=== PATIENT | female | born 1960 | race Caucasian/White ===

== ENCOUNTER 2019-05-15 21:08 | Emergency (ER) | payer OTHER, SELFPAY ==
[2019-05-15 21:27] VITALS: BP 139/97; PULSE 108; RESP 18; TEMP 37.4; O2SAT 99; BMI 29.5
--- NOTE | 2019-05-15 21:39 | W.ED.GENADLT ---
HPI - General Adult General: Chief complaint: Fever Stated complaint: fever Time Seen by Provider: 05/15/19 21:31 History of Present Illness: HPI narrative: Patient complains of flulike symptoms since yesterday. She had to go to her primary care provider today and tested negative for flu but started on Tamiflu and Phenergan with codeine for cough. Said she has a headache and just does not feel good muscles ache. History of migraines MD complaint: Flu Onset (ago): day(s) Associated symptoms: Reports cough, fevers/chills and headache(s); Deny chest pain, dyspnea, nausea, rash or vomiting Review of Systems Const: Reports: fever, chills and body aches Eyes: Denies: change in vision or blurry vision ENMT: Denies: throat pain or nasal congestion Card: Denies: chest pain or shortness of breath on exertion Resp: Denies: shortness of breath, productive cough or non-productive cough GI: Denies: abdominal pain, nausea or vomiting Musc: Denies: extremity pain Skin/Breast: Denies: rash Neuro: Reports: headache Psych: Denies: anxiety or depression Gautam/Lymph: Denies: easy bruising PFSH ED PFSH: Social History Smoking and tobacco status: never smoked Physical Exam Const: COMMON NORMALS: no apparent distress, average body habitus and oriented x3 HENMT: COMMON NORMALS: normocephalic HEAD & SCALP: normal to inspection and normocephalic FACE & SINUS: normal facial exam Eye: COMMON NORMALS: conjunctivae normal GENERAL EYE: normal appearance of both eyes CONJUNCTIVA: Yes conjunctivae normal Neck/C-Spine: COMMON NORMALS: no JVD Chest: COMMONS NORMALS: inspection of chest normal Resp: COMMON NORMALS: normal respiratory effort and clear to auscultation bilaterally AUSCULTATION: clear to auscultation bilaterally Cardio: COMMON NORMALS: no JVD, regular rate and regular rhythm RATE: regular rate RHYTHM: regular rhythm GI: COMMON NORMALS: normal to inspection, nondistended, normoactive bowel sounds Extremity: COMMON NORMALS: normal to inspection and full ROM Neuro: COMMON NORMALS: oriented x3 Course Vital Signs: Vital signs: Vital Signs Temperature 99.4 F 05/15/19 21:27 Pulse Rate 108 H 05/15/19 21:27 Respiratory Rate 18 05/15/19 21:27 Blood Pressure 139/97 05/15/19 21:27 Pulse Oximetry 99 05/15/19 21:27 Discharge Plan Discharge Prescriptions: No Action Prinivil 5 mg tablet 5 mg PO DAILY RF: 0 Coding Level of Care Code ED Competitive Intelligence Manager for Chelsie Villeda
[2019-05-15] MEDS: sodium chloride 0.9% 1,000 ML 999 ML IV (21:48)
[2019-05-15] MEDS: ondansetron 2 mg/ML SDV 2 mL 8 MG IVP (21:50)
[2019-05-15] MEDS: ketorolac 30 mg/mL INJ IVP (21:53)
[2019-05-15 22:58] VITALS: BP 107/84; PULSE 108; RESP 18; TEMP 37.4; O2SAT 96
== END 2019-05-15 22:58 | disposition home or self-care (01) ==
PROVIDERS: Emergency Provider Nurse Practitioner Family; Family Provider Nurse Practitioner Family
DX: R50.9 Fever, unspecified (principal); R05 Cough; R51 Headache
CPT/HCPCS: 96360; 96361; 96374; 96375; 99281; 99283; J1885; J2405; J7030

== ENCOUNTER → 2020-01-27 10:09 | Outpatient (BNVA) | payer OTHER, SELFPAY | PROVIDERS: Family Provider Nurse Practitioner Family; PCP Nurse Practitioner Family; Referring Provider Nurse Practitioner Family; Visit Provider Anesthesiology Pain Medicine | DX: M47.816 Spondylosis without myelopathy or radiculopathy, lumbar region (principal); M51.16 Intervertebral disc disorders with radiculopathy, lumbar region; M54.9 Dorsalgia, unspecified; M62.830 Muscle spasm of back; Z79.1 Long term (current) use of non-steroidal anti-inflammatories (NSAID) | CPT/HCPCS: 99203; 99204 ==

== ENCOUNTER 2020-01-28 09:27 | Outpatient (CLI) | payer OTHER, SELFPAY ==
--- NOTE | 2020-01-28 09:37 | XR_ITS ---
WS: [id number] Lumbar spine with flexion, extension, and neutral lateral, 01/28/2020 Clinical Data: M47.816 - Spondylosis without myelopathy or radiculopathy, lumbar region Comparison: Lumbar spine, 02/18/2018. Findings: No compression fractures is seen. There is degenerative disc narrowing at L3-L4.. There is a subluxation of L3 on L4 of 0.45 cm. Minimal osteoarthritic spurring is seen at L3 and L4.. On flexion and extension there is no limitation of motion or change in the subluxation. XR/XR lumbar spine f/e only [id number] Impression: 1. Degenerative disc narrowing at L3-L4. 2. 0.45 cm subluxation of L3 on L4. 3. No change in the subluxation or limitation of motion on flexion or extension .
[2020-01-28 10:34] LABS: Anion Gap 11.9 (5-19); Blood Urea Nitrogen 10 mg/dL (6-20); Calcium 9.1 mg/dL (8.5-10.5); Carbon Dioxide 32 mmol/L (22-29); Chloride 103 mmol/L (98-107); Glomerular Filtration Rate 64.3 mL/min (90-130); Glucose 86 mg/dL (65-115); Osmolality Calculated 294 mOsm/kg (285-295); Potassium 3.9 mmol/L (3.5-5.1); Sodium 143 mmol/L (136-145)
== END 2020-01-28 09:28 | disposition home or self-care (01) ==
LOC: RAD 09:33
PROVIDERS: PCP Nurse Practitioner Family; Visit Provider Anesthesiology Pain Medicine
DX: M47.816 Spondylosis without myelopathy or radiculopathy, lumbar region (principal); Z79.1 Long term (current) use of non-steroidal anti-inflammatories (NSAID); S33.130A Subluxation of L3/L4 lumbar vertebra, initial encounter; X58.XXXA Exposure to other specified factors, initial encounter
CPT/HCPCS: 72120; 80048

== ENCOUNTER → 2020-02-24 09:21 | Outpatient (BNVA) | payer OTHER, SELFPAY | PROVIDERS: Family Provider Nurse Practitioner Family; PCP Nurse Practitioner Family; Visit Provider Anesthesiology Pain Medicine | DX: M54.9 Dorsalgia, unspecified (principal); M47.816 Spondylosis without myelopathy or radiculopathy, lumbar region; M51.16 Intervertebral disc disorders with radiculopathy, lumbar region; M62.830 Muscle spasm of back | CPT/HCPCS: 99213 ==

== ENCOUNTER → 2020-03-02 12:46 | Outpatient (BNVA) | payer OTHER, SELFPAY | PROVIDERS: Family Provider Nurse Practitioner Family; PCP Nurse Practitioner Family; Visit Provider Anesthesiology Pain Medicine | DX: M53.3 Sacrococcygeal disorders, not elsewhere classified (principal); M54.9 Dorsalgia, unspecified; Z79.891 Long term (current) use of opiate analgesic | CPT/HCPCS: G0260; J1030; J3490 ==

== ENCOUNTER → 2020-03-23 10:24 | Outpatient (BNVA) | payer OTHER, SELFPAY | PROVIDERS: Family Provider Nurse Practitioner Family; PCP Nurse Practitioner Family; Visit Provider Anesthesiology Pain Medicine | DX: M54.9 Dorsalgia, unspecified (principal); M47.816 Spondylosis without myelopathy or radiculopathy, lumbar region; M51.16 Intervertebral disc disorders with radiculopathy, lumbar region; M62.830 Muscle spasm of back | CPT/HCPCS: 99213; 99214 ==

== ENCOUNTER 2020-07-14 09:04 | Outpatient (CLI) | payer OTHER, SELFPAY ==
--- NOTE | 2020-07-14 09:16 | XR_ITS ---
WS: [id number] Exam: XR lumbar spine 6V w f/e [id number] Date/Time of Exam: 07/14/2020 9:29 AM Reason For Exam: ACUTE BACK PAIN LESS THAN 4 WKS DURATION No fracture or dislocation. Moderate degeneration of the L3-4 disc with degenerative anterolisthesis of L3 on L4. Mild spondylosis. Osteopenia. Facet DJD at all levels. Flexion and extension views show about 9 mm forward movement of L3 on L4 during flexion. No other sign of instability or subluxation. XR/XR lumbar spine 6V w f/e [id number] IMPRESSION: 1. Degenerative anterolisthesis of L3 on L4 with about 9 mm forward movement of L3 during flexion. Degeneration of the L3-4 disc. 2. No fracture. Degenerative changes and osteopenia.
== END 2020-07-14 09:05 | disposition home or self-care (01) ==
PROVIDERS: PCP Nurse Practitioner Family; Visit Provider Nurse Practitioner Family
DX: M54.5 Low back pain (principal)
CPT/HCPCS: 72114

== ENCOUNTER 2020-09-22 11:07 | Outpatient (CLI) | payer OTHER, SELFPAY ==
--- NOTE | 2020-09-22 11:16 | XR_ITS ---
WS: [id number] Lumbar spine, 3 views, 09/22/2020 Clinical Data: pain after injury Comparison: Lumbar spine, 07/14/2020 Findings: No compression fractures are seen. There is degenerative disc narrowing at L3-L4. There is a 0.9. cm subluxation of L3 on L4 unchanged. There is anterior osteoarthritic spurring of L1, L3-L5. The transv erse processes and SI joints are normal. XR/XR lumbar spine 2-3V* [id number] Impression: 1. Degenerative disc narrowing at L3-L4. 2. Subluxation of L3 on L4 of 0.9 cm 3. Osteoarthritis of multiple lumbar vertebral bodies.
--- NOTE | 2020-09-22 11:16 | XR_ITS ---
WS: [id number] Left elbow, 3 views, 09/22/2020 Clinical Data: pain after injury Comparison: None. Findings: No fractures or dislocations are seen. The radial head is normal. The soft tissues are unremarkable. There is a small fragment adjacent to the olecranon which may be from an old injury. XR/XR elbow LT min 3V* [id number] Impression: Negative left elbow.
--- NOTE | 2020-09-22 11:16 | XR_ITS ---
WS: [id number] Left shoulder, 3 views, 09/22/2020 Clinical Data: pain after injury Comparison: None. Findings: No fractures or dislocations are seen. The AC joint is normal. The adjacent left clavicle, left scapu la and ribs are normal. The soft tissues are unremarkable. XR/XR shoulder LT min 2V* [id number] Impression: Negative left shoulder.
== END 2020-09-22 11:08 | disposition home or self-care (01) ==
LOC: RAD 11:11
PROVIDERS: PCP Nurse Practitioner Family; Visit Provider Nurse Practitioner
DX: M25.512 Pain in left shoulder (principal); M54.5 Low back pain; M25.522 Pain in left elbow; S33.130A Subluxation of L3/L4 lumbar vertebra, initial encounter; M47.816 Spondylosis without myelopathy or radiculopathy, lumbar region
CPT/HCPCS: 72100; 73030; 73080

== ENCOUNTER 2020-11-02 09:00 | Outpatient (CLI) | payer OTHER, SELFPAY ==
--- NOTE | 2020-11-02 09:24 | MR_ITS ---
WS: [id number] MRI CERVICAL SPINE NONCONTRAST TECHNIQUE: Sagittal T1, T2 and STIR imaging. Axial T2, gradient, and fiesta imaging. CLINICAL INFORMATION: neck pain w radiculopathy to right shoulder/arm COMPARISON: MRI 7 FINDINGS: Mild cervical curve. Straightening of the normal cervical lordosis. Cord signal is normal. Small disc protrusions worse at C4-C5 and C5-C6. C2-C3: Mild left bony foraminal narrowing. Spinal canal and foramen are patent. C3-C4: Mild disc osteophyte complex with endplate ridging. Mild facet arthropathy. Spinal canal is pa tent. Mild left and no significant right foraminal narrowing. Spinal canal is patent. C4-C5: Disc osteophyte protrusion with endplate ridging. Moderate facet arthropathy. Moderate central canal stenosis with slight contact and flattening of the cervical cord. Moderate bilateral bony fora vitaliy narrowing left greater than right. C5-C6: Disc osteophyte protrusion with moderate central canal stenosis. Slight contact of the cervica l cord. Moderate right and mild left foraminal narrowing. Moderate facet arthropathy. C6-C7: Mild disc osteophyte complex with endplate ridging. Mild left and no significant right foramin al narrowing. Spinal canal is patent. C7-T1: Normal. Visualized brain stem structures: Normal. Prevertebral soft tissues: Normal. MR/MR cervical spin wo con* [id number] IMPRESSION: 1. Small disc osteophyte protrusions C4-C5 and C5-C6 with moderate central can al stenosis and slight contact of the cervical cord worse at C4-5. This appears stable since 2019. 2. Moderate bilateral bony foraminal narrowing C4-C5 worse in the left and C5- C6 worse in the right. 3. Mild left C3-C4 and left C6-C7 bony foraminal narrowing. 4. Moderate facet arthropathy C4-C6.
== END 2020-11-02 09:01 | disposition home or self-care (01) ==
PROVIDERS: PCP Nurse Practitioner Family; Visit Provider Family Medicine
DX: M48.02 Spinal stenosis, cervical region (principal); S16.1XXA Strain of muscle, fascia and tendon at neck level, initial encounter; M54.2 Cervicalgia; M54.12 Radiculopathy, cervical region; M47.812 Spondylosis without myelopathy or radiculopathy, cervical region; M25.78 Osteophyte, vertebrae; X58.XXXA Exposure to other specified factors, initial encounter
CPT/HCPCS: 72141

== ENCOUNTER 2022-03-08 07:40 | Outpatient (CLI) | payer OTHER, SELFPAY ==
--- NOTE | 2022-03-08 07:47 | MM_ITS ---
WS: [id number] BILATERAL SCREENING DIGITAL TOMOSYNTHESIS MAMMOGRAM WITH CAD HISTORY: SCREENING COMPARISON: 02/17/2019, 11/15/2017 Bilateral CC and MLO views with tomosynthesis and synthetic mammography submitted. Computer aided det ection analyzed. Breast composition: There are scattered areas of fibroglandular density. No suspicious masses, microc alcifications or architectural distortion. MM/[place] [id number] IMPRESSION: BI-RADS: 1-Negative FOLLOW UP: 1 Year Follow-up
== END 2022-03-08 07:41 | disposition home or self-care (01) ==
LOC: RAD 07:42
PROVIDERS: PCP Family Medicine; Visit Provider Family Medicine
DX: Z12.31 Encounter for screening mammogram for malignant neoplasm of breast (principal)
CPT/HCPCS: 77063; 77067

== ENCOUNTER 2022-03-23 09:24 | Outpatient (CLI) | payer OTHER, SELFPAY | END 2022-03-23 09:25 | disposition home or self-care (01) | LOC: SLEEP 03-24 09:27 | PROVIDERS: PCP Family Medicine; Visit Provider Family Medicine | DX: G47.10 Hypersomnia, unspecified (principal) | CPT/HCPCS: G0399 ==

== ENCOUNTER 2022-10-19 12:45 | Outpatient (CLI) | payer OTHER, SELFPAY ==
--- NOTE | 2022-10-19 | USCV_ITS ---
Lilo Mayo Age: 62 Gender: F : 1960 Exam Date: 10/19/2022 13:15 Ordering Phys: Livia Stein Technologist: DAVE [place]am Location[place] [facility] [place]: Leg swelling and pain HISTORY: Lower extremity pain. Lower extremity swelling. PROCEDURES: Venous duplex imaging was performed in only the right lower extremity. The following venous structures were evaluated: common femoral vein, profunda vein, proximal portion of the greater saphenous vein, superficial femoral vein, and the popliteal vein. In addition, the posterior tibial and peroneal trunk were evaluated. Serial compression, augmentation maneuvers, and spectral Doppler flow evaluation were performed. FINDINGS: Normal 2-D Doppler and augmentation and compressibility throughout the lower extremity venous structures. Additional imaging through the proximal calf veins also reveals no thrombus. Limited evaluation of the greater saphenous vein is patent with no thrombus. CONCLUSIONS No DVT right lower extremity. Dr. Valeri Vaz DO (Electronically Signed) Final Date: 19 October 2022 13:34 S
== END 2022-10-19 12:46 | disposition home or self-care (01) ==
PROVIDERS: PCP Family Medicine; Visit Provider Nurse Practitioner Family
DX: R22.41 Localized swelling, mass and lump, right lower limb (principal); M79.604 Pain in right leg
CPT/HCPCS: 93971

== ENCOUNTER 2023-08-29 00:56 | Emergency (ER) | payer OTHER, SELFPAY ==
[2023-08-29 01:02] VITALS: BP 148/79; PULSE 89; RESP 18; TEMP 36.7; O2SAT 98; BMI 34.0
[2023-08-29] MEDS: ketorolac 60 mg/2 mL INJ IM (01:26)
[2023-08-29] MEDS: orphenadrine 30 mg/mL Inj 2 mL 60 MG IM (01:27)
--- NOTE | 2023-08-29 01:34 | ED_ITS ---
HPI - Back Pain/Injury General: Chief Complaint: Back Pain/Injury Stated Complaint: lower back pain Time Seen by Provider: 08/29/23 01:09 History of Present Illness: Patient presents to the ER with complaints of back pain. She says her sciatic nerve is flaring up. Is rating down her left leg. Patient is got a long history of back problems. This time the pain started about 2 days ago but got severely worse last night. Patient has tried her tramadol, Neurontin and tizanidine all with no relief. Patient has had have no new injuries. Review of Systems General: Reports: 10 or more systems reviewed and unremarkable except in HPI and below PFSH ED PFSH: Medical History Spinal stenosis, cervical region Family History Mother Cancer lung cancer Father Cancer Brother Diabetes Sister Hypertension Other Heart problem Denies family history of Anesthesia complication Bleeding disorder Social History Smoking and tobacco/nicotine status: never used tobacco/nicotine Alcohol intake: never Substance/Drug Use: never Lives independently: Yes Physical Exam Const: COMMON NORMALS: no acute distress, average body habitus, patient oriented x3, no limitations, healthy appearing, alert and well nourished HENMT: COMMON NORMALS: normocephalic, atraumatic, hearing grossly normal bilaterally, external ears normal, Normal external nose present and moist oral mucous membranes HEAD & SCALP: normocephalic and atraumatic NOSE: Normal external nose present EXTERNAL EAR: Yes external ears normal Neck/C-Spine: COMMON NORMALS: no JVD Chest: COMMONS NORMALS: normal inspection of the chest and normal palpation of entire chest wall Resp: COMMON NORMALS: normal respiratory effort, No retractions, No use of accessory muscles and clear to auscultation bilaterally AUSCULTATION: clear to auscultation bilaterally Cardio: COMMON NORMALS: no JVD, regular rate, regular rhythm, S1 normal heart sound present, S2 normal heart sound present, No gallops present (Cardio), No clicks present (Cardio) and No murmurs present (Cardio) RATE: regular rate RHYTHM: regular rhythm HEART SOUNDS: S1 normal heart sound present and S2 normal heart sound present GI: COMMON NORMALS: Normal to inspection, nondistended, normoactive bowel sounds present, Soft to palpation, non-tender, No hepatosplenomegaly present and no masses PALPATION: Yes Soft to palpation and Yes No hepatosplenomegaly present Neuro: COMMON NORMALS: patient oriented x3 SENSORIUM/ORIENTATION: Yes alert Course Vital Signs: Vital signs: Vital Signs Temperature 98.0 F 08/29/23 01:02 Pulse Rate 89 08/29/23 01:02 Respiratory Rate 15 08/29/23 02:10 Blood Pressure 148/79 08/29/23 01:02 Pulse Oximetry 98 08/29/23 01:02 Oxygen Delivery Me thod Room Air 08/29/23 01:02 MDM - Back Pain/Injury Medical Decision Making X-rays were taken which showed moderate multilevel degenerative disc disease no acute changes, patient was given 60 mg Toradol, 60 mg Norflex, and 1 mg of Dilaudid total and the pain is substantially improved. These results was di scussed with the patient. Patient be discharged home on hydrocodone and is to follow back up with her PCP within next 7 days. Differential Diagnosis Likely sciatica Medical Records I reviewed the patient's medical records. Labs I reviewed the patient's lab results. Radiology Impressions Lumbar Spine X-Ray 08/29/23 01:35 IMPRESSION: Moderate multilevel degenerative disc disease, similar to prior exam. No evidence of acute fracture or destructive lesion. All radiology interpretation(s) finalized by discharge Discharge Plan Discharge Patient Disposition: Home Clinical Impression: Lumbar radiculopathy Condition: Stable Prescriptions: New hydrocodone-acetaminophen 5-325 mg tablet 1 tab PO Q6H PRN (Reason: pain) Qty: 14 0RF prednisone 50 mg tablet 50 mg PO DAILY Qty: 5 0RF No Action propranolol [Inderal LA] 80 mg capsule,extended release 24 hr 80 mg PO DAILY furosemide [Lasix] 20 mg tablet 20 mg PO DAILY potassium chloride 10 mEq capsule, extended release 10 meq PO DAILY tizanidine 2 mg tablet 2 mg PO BID PRN (Reason: muscle spasticity) 10 Days Qty: 20 0RF diclofenac sodium 75 mg tablet,delayed release (DR/EC) 75 mg PO BID PRN (Reason: pain) Qty: 14 0RF Rx Instructions: instead of naproxen....take with food hydrocodone-acetaminophen 7.5-325 mg tablet 1 tab PO .bedtime PRN (Reason: pain) 30 Days Qty: 30 0RF tramadol 50 mg tablet 50 mg PO Q6H PRN Victoza 3-Mat 0.6 mg/0.1 mL (18 mg/3 mL) pen injector See Rx Instructions SUBCUT .COMPLEX Qty: 9 1RF Rx Instructions: inject 0.6mg subcutaneously once daily x 7 days; then 1.2mg daily, not to exceed 1.8mg/day SUBCUT lactulose 10 gram/15 mL (15 mL) solution 15 ml PO BID 30 Days Qty: 900 1RF Prinivil 5 mg tablet 5 mg PO DAILY Discharge Orders: Discharge ED (Routine); Ordered 08/29/23 Ordered By: Canelo Vergara Referrals: Travis Grant MD [Primary Care Provider] - 1 week Patient Instructions: Opioid Safety, Pain Management, Lumbar Radiculopathy (ED) Activity Restrictions/Additional Instructions: Please take all medicine as directed. Please follow-up with your family proximal physician in the next 7 days. You may benefit from going back to the pain management physician. Coding Level of Care Code ED Stained Glass Window Designer for Chelsie Villeda
[2023-08-29 01:35] VITALS: BP 110/82; PULSE 85; RESP 20; O2SAT 95
--- NOTE | 2023-08-29 01:35 | XRR_ITS ---
PROCEDURE INFORMATION: Exam: XR Lumbosacral Spine Exam date and time: 08/29/2023 1:45 AM Age: 63 years old Clinical indication: Low back pain; Additional info: Acute on chronic back pain no new trauma TECHNIQUE: Imaging protocol: Radiologic exam of the lumbosacral spine. Views: 2 or 3 views. COMPARISON: CR XR lumbar spine 2-3V* [id number] 09/22/2020 11:23 AM FINDINGS: Bones/joints: There are 5 lumbar type vertebrae. Vertebral body heights are normal throughout. Degenerative disc disease is noted at L3-L4 with mild L3 on 4 anterolisthesis which is unchanged from prior. Fairly uniform disc space narrowing noted throughout the remainder of the lumbar spine. Soft tissues: Unremarkable. XR/XR lumbar spine 2-3V* [id number] IMPRESSION: Moderate multilevel degenerative disc disease, similar to prior exam. No evidence of acute fracture or destructive lesion.
[2023-08-29 02:05] VITALS: BP 105/69; PULSE 75; RESP 20; O2SAT 93
[2023-08-29 02:10] VITALS: RESP 15
[2023-08-29] MEDS: HYDROmorphone 1 mg/mL INJ 1 mL IM (02:10)
[2023-08-29 02:35] VITALS: BP 116/77; PULSE 73; RESP 18; O2SAT 92
== END 2023-08-29 02:51 | disposition home or self-care (01) ==
PROVIDERS: Emergency Provider Emergency Medicine; PCP Family Medicine
DX: M54.16 Radiculopathy, lumbar region (principal)
CPT/HCPCS: 72100; 96372; 99284; J1170; J1885; J2360

== ENCOUNTER 2023-11-07 10:52 | Outpatient (CLI) | payer OTHER, SELFPAY ==
[2023-11-07 11:39] LABS: Estmated Average Glucose 114; Hemoglobin A1C 5.6 % (4.0-6.0)
[2023-11-07 11:49] LABS: Alanine Aminotransferase 30 U/L (0-33); Albumin Level 3.9 g/dL (3.5-5.2); Alkaline Phosphatase 137 U/L (35-105); Anion Gap 13.2 (5-19); Aspartate Amino Transferase 35 U/L (0-32); Blood Urea Nitrogen 13 mg/dL (8-23); Calcium 8.7 mg/dL (8.5-10.5); Carbon Dioxide 26 mmol/L (22-29); Chloride 109 mmol/L (98-107); Globulin 2.8 g/dL (1.3-4.6); Glomerular Filtration Rate 63.7 mL/min (90-130); Glucose 112 mg/dL (65-115); Osmolality Calculated 299 mOsm/kg (285-295); Potassium 4.2 mmol/L (3.5-5.1); Sodium 144 mmol/L (136-145); Total Bilirubin 0.5 mg/dL (0.15-1.2); Total Protein 6.7 g/dL (6.6-8.7)
[2023-11-07 11:50] LABS: Creatinine Urine, Random 255 mg/dL (28-217); Microalbum Creatinine Ratio Ur 4 mg/dL (0-20); Microalbumin Random Urine 1 ug/dL (0-20)
== END 2023-11-07 10:53 | disposition home or self-care (01) ==
LOC: LAB 10:53
PROVIDERS: PCP Family Medicine; Visit Provider Internal Medicine
DX: R73.03 Prediabetes (principal); E88.819 Insulin resistance, unspecified; R63.5 Abnormal weight gain
CPT/HCPCS: 36415; 80053; 82044; 83036

== ENCOUNTER 2023-11-12 07:45 | Outpatient (CLI) | payer OTHER, SELFPAY ==
[2023-11-12 08:34] LABS: Urine Creatinine 110 mg/dL (28-217)
[2023-11-12 08:52] LABS: Total Volume Urine 1500 ml
== END 2023-11-12 07:46 | disposition home or self-care (01) ==
LOC: LAB 07:46
PROVIDERS: PCP Family Medicine; Visit Provider Internal Medicine
DX: R73.03 Prediabetes (principal); R63.5 Abnormal weight gain
CPT/HCPCS: 82530; 82570

== ENCOUNTER 2023-11-15 14:08 | Outpatient (CLI) | payer OTHER, SELFPAY ==
--- NOTE | 2023-11-15 14:10 | MM_ITS ---
WS: [id number] BILATERAL SCREENING DIGITAL TOMOSYNTHESIS MAMMOGRAM WITH CAD HISTORY: SCREENING COMPARISON: 03/08/2022, 02/17/2019 Bilateral CC and MLO views with tomosynthesis and synthetic mammography submitted. Computer aided det ection analyzed. Breast composition: There are scattered areas of fibroglandular density. No suspicious masses, microc alcifications or architectural distortion. Scattered asymmetries are stable. MM/[place] [id number] IMPRESSION: BI-RADS: 2-Benign FOLLOW UP: 1 Year Follow-up
== END 2023-11-15 14:09 | disposition home or self-care (01) ==
LOC: RAD 14:09
PROVIDERS: PCP Family Medicine; Visit Provider Family Medicine
DX: Z12.31 Encounter for screening mammogram for malignant neoplasm of breast (principal); R92.323 Mammographic fibroglandular density, bilateral breasts; N64.89 Other specified disorders of breast
CPT/HCPCS: 77063; 77067

== ENCOUNTER 2024-02-08 07:33 | Outpatient (CLI) | payer OTHER, SELFPAY ==
[2024-02-08 08:12] LABS: Chol HDL Ratio 3.22 mg/dL (0.0-4.40); Cholesterol 177 mg/dL (0-200); HDL Cholesterol 55 mg/dL (60-100); LDL Cholesterol Calculated 104 mg/dL (50-129); LDL HDL Ratio 1.89 RATIO (0.00-3.22); Triglycerides 89 mg/dL (0-150)
[2024-02-08 09:38] LABS: Estmated Average Glucose 100; Hemoglobin A1C 5.1 % (4.0-6.0)
== END 2024-02-08 07:34 | disposition home or self-care (01) ==
LOC: LAB 07:35
PROVIDERS: PCP Family Medicine; Visit Provider Internal Medicine
DX: E88.819 Insulin resistance, unspecified (principal); R63.5 Abnormal weight gain
CPT/HCPCS: 36415; 80061; 83036

== ENCOUNTER 2024-06-23 07:04 | Outpatient (CLI) | payer OTHER, SELFPAY ==
[2024-06-23 07:58] LABS: Estmated Average Glucose 100; Hemoglobin A1C 5.1 % (4.0-6.0)
[2024-06-23 07:59] LABS: Alanine Aminotransferase 30 U/L (0-33); Albumin Level 4.4 g/dL (3.5-5.2); Alkaline Phosphatase 132 U/L (35-105); Anion Gap 13.4 (5-19); Aspartate Amino Transferase 28 U/L (0-32); Blood Urea Nitrogen 13 mg/dL (8-23); Carbon Dioxide 28 mmol/L (22-29); Chloride 104 mmol/L (98-107); Chol HDL Ratio 2.38 mg/dL (0.0-4.40); Cholesterol 126 mg/dL (0-200); Globulin 2.8 g/dL (1.3-4.6); Glomerular Filtration Rate 45.5 mL/min (90-130); Glucose 101 mg/dL (65-115); HDL Cholesterol 53 mg/dL (60-100); LDL Cholesterol Calculated 51 mg/dL (50-129); LDL HDL Ratio 0.96 RATIO (0.00-3.22); Osmolality Calculated 294 mOsm/kg (285-295); Potassium 3.4 mmol/L (3.5-5.1); Sodium 142 mmol/L (136-145); Total Bilirubin 0.5 mg/dL (0.15-1.2); Total Protein 7.2 g/dL (6.6-8.7); Triglycerides 109 mg/dL (0-150)
[2024-06-23 08:00] LABS: Creatinine Urine, Random 394 mg/dL (28-217); Microalbum Creatinine Ratio Ur 5 mg/dL (0-20); Microalbumin Random Urine 2 ug/dL (0-20)
== END 2024-06-23 07:05 | disposition home or self-care (01) ==
LOC: LAB 07:05
PROVIDERS: PCP Family Medicine; Visit Provider Internal Medicine
DX: R73.03 Prediabetes (principal)
CPT/HCPCS: 80053; 80061; 82044; 83036

== ENCOUNTER 2024-10-01 16:44 | Inpatient (IN) | payer OTHER, SELFPAY ==
--- OUTSIDE RECORDS SUMMARY | 2024-10-01 17:00 | XMS_ITS | Encounter Summary ---
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
--- OUTSIDE RECORDS SUMMARY | 2024-10-01 17:00 | XMS_ITS | Encounter Summary ---
Author Organization [employer] [facility] Address [address] [place] [address] Care Team Providers Care Sales Marketing Director Name Role Phone Unavailable Primary Care Provider Unavailabl e Encounter Details Date Type Department Care Team (Latest Contact Info) Description 04/29/2001 Outpatient Historical HIS [facility] Arash Lopes MD [address] [place] [address] OSTEOARTHROS NOS-OTHER SITE (Primary Dx) Social History Tobacco Use Types Packs/Day Years Used Date Smoking Tobacco: Never Assessed Comments Unknown Sex and Gender Information Value Date Recorded Sex Assigned at Not on file 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
--- OUTSIDE RECORDS SUMMARY | 2024-10-01 17:00 | XMS_ITS | Encounter Summary ---
Author Organization [facility] Address [address] [place] [address] Care Team Providers Care Gum Machine Operator Name Role Phone Unavailable Primary Care Provider Unavailabl e Encounter Details Date Type Department Care Team (Latest Contact Info) Description 01/10/2002 Outpatient Historical HIS [facility] Arash Lopes MD [address] [place] [address] STOMACH FUNCTION DIS NEC (Primary Dx) Social History Tobacco Use Types Packs/Day Years Used Date Smoking Tobacco: Never Assessed Comments Unknown Sex and Gender Information Value Date Recorded Sex Assigned at Not on file 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
--- OUTSIDE RECORDS SUMMARY | 2024-10-01 17:00 | XMS_ITS | Encounter Summary ---
Author Organization [employer] [facility] Address [address] [place] [address] Care Team Providers Care Industrial Specialist Name Role Phone Unavailable Primary Care Provider Unavailabl e Encounter Details Date Type Department Care Team (Latest Contact Info) Description 02/26/2001 Outpatient Historical HIS [facility] Arash Lopes MD [address] [place] [address] LABYRINTHITIS NOS (Primary Dx) Social History Tobacco Use Types Packs/Day Years Used Date Smoking Tobacco: Never Assessed Comments Unknown Sex and Gender Information Value Date Recorded Sex Assigned at Not on file 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
--- OUTSIDE RECORDS SUMMARY | 2024-10-01 17:00 | XMS_ITS | Encounter Summary ---
Author Organization [employer] [facility] Address [address] [place] [address] Care Team Providers Care Elastic Attacher Coverstitch Name Role Phone Unavailable Primary Care Provider Unavailabl e Encounter Details Date Type Department Care Team (Latest Contact Info) Description 02/11/2002 Outpatient Historical HIS [facility] Arash Lopes MD [address] [place] [address] ACUTE PHARYNGITIS (Primary Dx); SOMATIC DYSFUNCTION NEC; STOMACH FUNCTION DIS NEC Social History Tobacco Use Types Packs/Day Years Used Date Smoking Tobacco: Never Assessed Comments Unknown Sex and Gender Information Value Date Recorded Sex Assigned at Not on file 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
--- OUTSIDE RECORDS SUMMARY | 2024-10-01 17:00 | XMS_ITS | Encounter Summary ---
Author Organization [employer] [facility] Address [address] [place] [address] Care Team Providers Care Account Leader Name Role Phone Unavailable Primary Care Provider Unavailabl e Encounter Details Date Type Department Care Team (Latest Contact Info) Description 06/03/1999 Outpatient Historical HIS 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
--- OUTSIDE RECORDS SUMMARY | 2024-10-01 17:00 | XMS_ITS | Encounter Summary ---
Author Organization [employer] [facility] Address [address] [place] [address] Care Team Providers Care Electrician Radio Name Role Phone Unavailable Primary Care Provider Unavailabl e Encounter Details Date Type Department Care Team (Latest Contact Info) Description 03/23/2000 Outpatient Historical HIS [facility] Arash Lopes MD [address] [place] [address] Need vaccination-viral disease (Primary Dx) Social History Tobacco Use Types Packs/Day Years Used Date Smoking Tobacco: Never Assessed Comments Unknown Sex and Gender Information Value Date Recorded Sex Assigned at Not on file 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
--- OUTSIDE RECORDS SUMMARY | 2024-10-01 17:00 | XMS_ITS | Encounter Summary ---
Author Organization [employer] [facility] Address [address] [place] [address] Care Team Providers Care Telephone Claims Representative Name Role Phone Unavailable Primary Care Provider Unavailabl e Encounter Details Date Type Department Care Team (Latest Contact Info) Description 03/15/2000 Outpatient Historical HIS [facility] Arash Lopes MD [address] [place] [address] Sprain lumbosacral (Primary Dx) Social History Tobacco Use Types Packs/Day Years Used Date Smoking Tobacco: Never Assessed Comments Unknown Sex and Gender Information Value Date Recorded Sex Assigned at Not on file Legal Sex Female 4:59 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
--- OUTSIDE RECORDS SUMMARY | 2024-10-01 17:00 | XMS_ITS | Encounter Summary ---
Author Organization [employer] [facility] Address [address] [place] [address] Care Team Providers Care Lithopress Operator Name Role Phone Unavailable Primary Care Provider Unavailabl e Encounter Details Date Type Department Care Team (Latest Contact Info) Description 05/07/1998 Outpatient Historical HIS [facility] Arash Lopes MD [address] [place] [address] Unspecified asthma(493.90) (Primary Dx); Other diseases of trachea and bronchus, not elsewhere classified Social History Tobacco Use Types Packs/Day Years Used Date Smoking Tobacco: Never Assessed Comments Unknown Sex and Gender Information Value Date Recorded Sex Assigned at Not on file 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
--- OUTSIDE RECORDS SUMMARY | 2024-10-01 17:00 | XMS_ITS | Patient Health Record ---
Author Organization [facility] Address [address] [place] [address] Care Team Providers Care Motorcycle Sales Associate Name Role Phone Lela Grover Primary Care Provider Allergies Allergen (clinical drug ingredient) Drug/Non Drug Allergy documented on EMR Reaction Allergy Type Onset Date Status Keflex rash Drug Allergy Active Penicillin rash Drug Allergy Active Reason For Referral No Information Medications Medication SIG (Take, Route, Frequency, Duration) Notes Start Date End Date Status Arnuity Ellipta 100 MCG/ACT Aerosol Powder Breath Activated 1 puff Inhalation Once a day; Duration: 90 days Active Furosemide 20 MG Tablet 1 tablet Orally twice dailt; Duration: 90 days Active Immunizations Vaccine Route Administration Date Status Comme nts Flucelvax Unknown 01/02/2019 Administered Pneumococcal polysaccharide PPV23 Unknown 05/04/2016 Ad ministered Td (adult) preservative free Unknown 10/31/2017 Adminis tered VZIG (Varicella-zoster immun e globulin), human, for IM use Unknown 10/25/2017 Administered Social History Tobacco Use: Social History Observation Description Date Details (start date - stop date) Never Smoker NA - NA Social History Depression Screening Social Info Question Answer Notes PHQ-9 Little interest or pleasure in doing thin gs Not at all Feeling down, depressed, or hopeless Not at all Trouble falling or staying asleep, or sleeping t oo much Nearly every day Feeling tired or having little energy Not at all Poor appetite or overeating Not at all Feeling bad about yourself, or that you are a failure, or have let yourself or your family down Not at all Trouble concentrating on thi ngs, such as reading the newspaper or watching television Not at all Moving or speaking so slowly that other people could have noticed. Or the opposite ? being so fidgety or restless that you have been moving around a lot more than usual Not at all Thoughts that you would be b alicia off , or of hurting yourself in some way Not at all Total Score 3 Interpretation Minimal Depression Drugs/Alcohol: Social Info Question Answer Notes Alcohol Screen (Audit-C) Did you have a drink containing alcohol in the past year? No Points 0 Interpretation Negative Drugs Have you used drugs other than those for medical reasons in the past 12 months? No Tobacco Use: Social Info Question Answer Notes xTobacco Use/Smoking Are you a nonsmoker Additional Details Category Social Info Options Details Drugs/Alcohol: Do you smoke marijuana? De nies Problems Problem Type SNOMED Code ICD Code Onset Dates Problem Status W/U Status Risk Notes Problem Metabolic syndrome (772033031) Metabolic syndrome (E88.81) Active confirmed Problem Essential hypertension (32365729) Essential hypertension (I10) Active confirmed Problem Migraine with aura (8911738) Migraine with aura and without status migrainosus, not intractable (G43.109) Active confirmed Problem Obese class I (finding) (920616746052642) Obesity (BMI 30.0-34.9) (E66.9) Active confirmed Problem Seasonal allergy (925423905) Seasonal allergies (J30.2) Active confirmed Problem Body mass index 30.00 to 34.99 (937769422445346) BMI 34.0-34.9,adult (Z68.34) Active confirmed Problem Lumbosacral spondylosis without myelopathy (25322157) 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 Problem Acquired spondylolisthesis (075910449) Anterolisthesis (M43.10) Active confirmed Problem Low back pain (057818896) Low back pain (724.2) 019 Active confirmed [id number]- Problem Lumbosacral spondylosis without myelopathy (74183659) 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 Active confirmed [id number]- Problem Essential hypertension (06230656) Essential hypertension (401.1) 016 Active confirmed [id number]- Problem Tension headache (099848194) Tension headache (307.81) 018 Problem resolved confirmed [id number]- Problem Migraine (47897735) Variants of migraine, not elsewhere classified, without mention of intractable migraine without mention of status migrainosus (346.20) 019 Problem resolved confirmed [id number]- Problem Wheezing (07655318) Wheezing (786.07) 06/05 018 Problem resolved confirmed [id number]- Problem Cough (19163092) Cough (786.2) 018 Problem resolved confirmed [id number]- Problem Fatigue (69927105) Fatigue (780.79) 02/22 018 Problem resolved confirmed [id number]- Problem Screening for malignant neoplasm of colon (266761817) Screening for cancer of colon (V76.51) 018 Problem resolved confirmed [id number]- Problem Screening for colon cancer (491128410) Screening for colon cancer (V76.49) 016 Problem resolved confirmed [id number]- Problem Allergic rhinitis due to allergen (34286454) Allergic rhinitis, other allergen-induced (477.8) 019 Problem resolved confirmed [id number]- Problem Night sweats (14578177) Night sweats (780.8) 018 Problem resolved confirmed [id number]- Problem Disorder of hematopoietic system (14383391) Other abnormal findings on blood examination (790.99) 018 Problem resolved confirmed [id number]- Problem Cellulitis of th e hand (682.4) Problem resolved confirmed [id number]- Problem Influenza (9272871) Influenza, w ith other respiratory manifestation (487.1) 019 Problem resolved confirmed [id number]- Problem Elevated levels of transaminase & lactic acid dehydrogenase (385757124) Elevated SGOT (AST) (790.4) 018 Problem resolved confirmed [id number]- Problem Iron deficiency anemia (76734425) Other specified iron deficiency anemia (280.8) 019 Problem resolved confirmed [id number]- Problem Bursitis of hip (43577648) Bursitis of hip (726.5) 019 Problem resolved confirmed [id number]- Problem Central obesity (636027737) Central obesity (278.1) 016 Problem resolved confirmed [id number]- Problem Right upper quadrant pain (865634570) Right upper quadrant abdominal pain (789.01) 018 Problem resolved confirmed [id number]- Problem Laryngitis (42176245) laryngitis (476.0) 018 Problem resolved confirmed [id number]- Problem Screening for malignant neoplasm of breast (491464474) Screening for breast cancer, unspecified (V76.10) 016 Problem resolved confirmed [id number]- Problem Screening mammography (32347543) Screening mammogram - other (V76.12) 018 Problem resolved confirmed [id number]- Plan Of Treatment No Information Insurance Providers Payer Name Payer Address Payer Phone Subscriber Number Group Number Insured Name Patient Relationship to Insured Coverage Start Date Coverage End Date [facility] [address] [address] [place] [phone] [id number] Lilo Mayo Self - patient is the insured Medications Administered Medication Instructions Date of Administration Dosage Notes dexAMETHasone 09/02/2020 1 mg Medical (General) History Medical History History ICD Code Hypertension Lumbar spondylarthritis Migraines Obesity Fibromyalgia Allergies; seasonal Fatty liver Covid 04/2021 Surgical History Surgery Date(Month/Year) Appendectomy 1988 Cholecystectomy; open procedure 1988 Biopsy of lymph node; left side of neck 2005 Biopsy of left breast; benign 2012 Fracture repair; left ankle 1980s Hysterectomy 2002 Wrist surgery; left 06/2018 Hospitalization History Reason Date(Month/Year) Surgeries Child
--- OUTSIDE RECORDS SUMMARY | 2024-10-01 17:00 | XMS_ITS | Encounter Summary ---
Author Organization [employer] [facility] Address [address] [place] [address] Care Team Providers Care Painter Hand Name Role Phone Unavailable Primary Care Provider Unavailabl e Encounter Details Date Type Department Care Team (Latest Contact Info) Description 09/23/1998 Outpatient Historical HIS [facility] Arash Lopes MD [address] [place] [address] Unspecified sinusitis (chronic) (Primary Dx); Bronchitis, not specified as acute or chronic; Obesity, unspecified Social History Tobacco Use Types Packs/Day Years Used Date Smoking Tobacco: Never Assessed Comments Unknown Sex and Gender Information Value Date Recorded Sex Assigned at Not on file Legal Sex Female 4:59 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
--- OUTSIDE RECORDS SUMMARY | 2024-10-01 17:00 | XMS_ITS | Encounter Summary ---
Author Organization [facility] Address [address] [place] [address] Care Team Providers Care Continuity Director Name Role Phone Unavailable Primary Care Provider Unavailabl e Encounter Details Date Type Department Care Team (Late st Contact Info) Description 03/05/2008 Outpatient Historical [facility] Lee Neumann MD [address] [address] Social History Tobacco Use Types Packs/Day Years Used Date Smoking Tobacco: Never Comments No Sex and Gender Information Value Date Recorded Sex Assigned at Not on file Legal Sex Female 4:59 AM CHERRY CUTTER Gender Identity Not on file Sexual Orientation Not on file documented as of this encounter Plan of Treatment Not on file documented as of this encounter Visit Diagnoses Not on filedocumented in this encounter
--- OUTSIDE RECORDS SUMMARY | 2024-10-01 17:00 | XMS_ITS | Encounter Summary ---
Author Organization [facility] Address [address] [place] [address] Care Team Providers Care Automatic Furnace Operator Name Role Phone Unavailable Primary Care Provider Unavailabl e Encounter Details Date Type Department Care Team (Latest Contact Info) Description 03/24/1999 Outpatient Historical HIS [facility] Arash Lopes MD [address] [place] [phone] Other chronic allergic conjunctivitis (Primary Dx) Social History Tobacco Use Types Packs/Day Years Used Date Smoking Tobacco: Never Assessed Comments Unknown Sex and Gender Information Value Date Recorded Sex Assigned at Not on file Legal Sex Female 4:59 AM TECHNOLOGY DIRECTOR Gender Identity Not on file Sexual Orientation Not on file documented as of this encounter Plan of Treatment Not on file documented as of this encounter Visit Diagnoses Diagnosis Other chronic allergic conjunctivitis- Primary documented in this encounter
--- OUTSIDE RECORDS SUMMARY | 2024-10-01 17:00 | XMS_ITS | Encounter Summary ---
Author Organization [facility] Address [address] [place] [address] Care Team Providers Care Chief Information Officer Name Role Phone Unavailable Primary Care Provider Unavailabl e Encounter Details Date Type Department Care Team (Latest Contact Info) Description 02/11/2008 Outpatient Historical [facility] [place] [address] [facility] [address] [place] [address] Lee Neumann MD [address] [facility] [address] [place] [address] Lumbosacral Spondylosis without Myelopathy Social History Tobacco Use Types Packs/Day Years Used Date Smoking Tobacco: Never Comments No Sex and Gender Information Value Date Recorded Sex Assigned at Not on file Legal Sex Female 4:59 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
--- OUTSIDE RECORDS SUMMARY | 2024-10-01 17:00 | XMS_ITS | Encounter Summary ---
Author Organization [employer] [facility] Address [address] [place] [address] Care Team Providers Care Electric Locomotive Crane Operator Name Role Phone Unavailable Primary Care Provider Unavailabl e Encounter Details Date Type Department Care Team (Latest Contact Info) Description 12/20/2001 Outpatient Historical HIS [facility] Arash Lopes MD [address] [place] [phone] ALLERGIC RHINITIS NOS (Primary Dx); UNS ASTHMA WOSTATUS ASTHMATICUS; ACUTE SINUSITIS NOS; SWELLING IN HEAD & NECK Social History Tobacco Use Types Packs/Day Years Used Date Smoking Tobacco: Never Assessed Comments Unknown Sex and Gender Information Value Date Recorded Sex Assigned at Not on file Legal Sex Female 4:59 [address] VENDING ROUTE SERVICER Gender Identity Not on file Sexual Orientation Not on file documented as of this encounter Plan of Treatment Not on file documented as of this encounter Visit Diagnoses Diagnosis Allergic rhinitis, cause unspecified- Primary Unspecified asthma(493.90) Unspecified asthma Acute sinusitis, unspecified Swelling, mass, or lump in head and neck documented in this encounter
--- OUTSIDE RECORDS SUMMARY | 2024-10-01 17:00 | XMS_ITS | Encounter Summary ---
Author Organization [employer] [facility] Address [address] [place] [address] Care Team Providers Care Coil Winder Strap Name Role Phone Unavailable Primary Care Provider Unavailabl e Encounter Details Date Type Department Care Team (Latest Contact Info) Description 05/09/2002 Outpatient Historical HIS [facility] Arash Lopes MD [address] [place] [address] HYPERTENSION NOS (Primary Dx) Social History Tobacco Use Types Packs/Day Years Used Date Smoking Tobacco: Never Assessed Comments Unknown Sex and Gender Information Value Date Recorded Sex Assigned at Not on file 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
--- OUTSIDE RECORDS SUMMARY | 2024-10-01 17:00 | XMS_ITS | Encounter Summary ---
Author Organization [employer] [facility] Address [address] [place] [address] Care Team Providers Care Timber Sprinkler Name Role Phone Unavailable Primary Care Provider Unavailabl e Encounter Details Date Type Department Care Team (Latest Contact Info) Description 04/18/2002 Outpatient Historical HIS [facility] Arash Lopes MD [address] [place] [phone] BRONCHITIS NOS (Primary Dx) Social History Tobacco Use Types Packs/Day Years Used Date Smoking Tobacco: Never Assessed Comments Unknown Sex and Gender Information Value Date Recorded Sex Assigned at Not on file Legal Sex Female 4:59 AM 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
--- OUTSIDE RECORDS SUMMARY | 2024-10-01 17:00 | XMS_ITS | Encounter Summary ---
Author Organization [employer] [facility] Address [address] [place] [address] Care Team Providers Care Bass Mechanism Maker Name Role Phone Unavailable Primary Care Provider Unavailabl e Encounter Details Date Type Department Care Team (Latest Contact Info) Description 10/28/1999 Outpatient Historical HIS [facility] Arash Lopes MD [address] [place] [address] Sprain and strain of unspecified site of knee and leg (Primary Dx); Depressive disorder, not elsewhere classified; Dyspepsia and other specified disorders of function of stomach Social History Tobacco Use Types Packs/Day Years Used Date Smoking Tobacco: Never Assessed Comments Unknown Sex and Gender Information Value Date Recorded Sex Assigned at Not on file Legal Sex Female 4:59 AM NICKEL OPERATOR Gender Identity Not on file Sexual Orientation Not on file documented as of this encounter Plan of Treatment Not on file documented as of this encounter Visit Diagnoses Diagnosis Sprain and strain of unspecified site of knee and leg- Primary Depressive disorder, not elsewhere classified Dyspepsia and other specified disorders of function of stomach documented in this encounter
--- OUTSIDE RECORDS SUMMARY | 2024-10-01 17:00 | XMS_ITS | Encounter Summary ---
Author Organization [employer] [facility] Address [address] [place] [address] Care Team Providers Care Certified Midwife Name Role Phone Unavailable Primary Care Provider Unavailabl e Encounter Details Date Type Department Care Team (Latest Contact Info) Description 03/23/1998 Outpatient Historical HIS [facility] Arash Lopes MD [address] [place] [address] Acute sinusitis, unspecified (Primary Dx) Social History Tobacco Use Types Packs/Day Years Used Date Smoking Tobacco: Never Assessed Comments Unknown Sex and Gender Information Value Date Recorded Sex Assigned at Not on file Legal Sex Female 4:59 AM CURB SUPERVISOR Gender Identity Not on file Sexual Orientation Not on file documented as of this encounter Plan of Treatment Not on file documented as of this encounter Visit Diagnoses Diagnosis Acute sinusitis, unspecified- Primary documented in this encounter
--- OUTSIDE RECORDS SUMMARY | 2024-10-01 17:00 | XMS_ITS | Encounter Summary ---
Author Organization [employer] [facility] Address [address] [place] [address] Care Team Providers Care Spooler Name Role Phone Unavailable Primary Care Provider Unavailabl e Encounter Details Date Type Department Care Team (Latest Contact Info) Description 09/27/2000 Outpatient Historical HIS [facility] Arash Lopes MD [address] [place] [address] Bronchitis, not specified as acute or chronic (Primary Dx); Edema Social History Tobacco Use Types Packs/Day Years Used Date Smoking Tobacco: Never Assessed Comments Unknown Sex and Gender Information Value Date Recorded Sex Assigned at Not on file Legal Sex Female 4:59 AM 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
--- OUTSIDE RECORDS SUMMARY | 2024-10-01 17:00 | XMS_ITS | Clinical Summary ---
Author Organization [facility] Address [address] [place] [address] Phone Care Team Providers Care Extrusion Press Supervisor Name Role Phone Unavailable Primary Care Provider Unavailabl e Allergies Active Allergy Reactions Criticality Noted Date Comments Cephalexin Anaphylaxis High 10/31/2007 Methylprednisolone Swelling Low 10/31/2007 Penicillins Anaphylaxis High 10/31/2007 Medications MELATONIN 3 mg Oral Tab Take by mouth nightly as needed. Takes 2 - 3 tabs at bedtime Active BENICAR HCT 40-25 mg Oral Tab Take 1 Tab by mouth daily route supervisor. Active VICOPROFEN 7.5-200 mg Oral Tab Take 1 Tab by mouth. TAKES 1 EVERY 6 HOURS prn Active PARAFON FORTE DSC 500 mg Oral Tab Take 500 mg by mouth daily. Active trazodone (DESYREL) 50 mg Oral Tab Take 2 Tabs by mouth daily at bedtime. 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 HBP (high blood pressure) 10/31/2007 Immunizations Immunization Administration Dates Next Due Hepatitis B Vaccine 07/04/2000 Influenza Seasonal Unspecified Formulation IM Family History Medical History Relation Name Comments Arthritis-osteo Father Heart Disease Father Hypertension Father Heart Disease Mother Hypertension Mother Migraines Mother Anemia Sister Relation Name Status Comments Father Alive Mother Alive Sister Alive Social History Tobacco Use Types Packs/Day Years Used Date Smoking Tobacco: Never Comments No Sex and Gender Information Value Date Recorded Sex Assigned at Not on file Legal Sex Female 4:59 AM ESTHETICIAN SPA Gender Identity Not on file Sexual Orientation Not on file Last Filed Vital Signs Vital Sign Reading Time Taken Comments Blood Pressure 112/60 10/31/2007 1:14 PM CDT Pulse 72 10/31/2007 1:14 PM CDT Temperature - - Respiratory Rate - - Oxygen Saturation - - Inhaled Oxygen Concentration - - Weight 103.4 kg (228 lb) 10/31/2007 1:14 PM CDT Height 172.7 cm (5' 8 ) 10/31/2007 1:14 PM CDT Body Mass Index 34.67 10/31/2007 1:14 PM CDT Plan of Treatment Health Maintenance Due Date Last Done Comments DTAP/TDAP/TD VACCINES (1 - Tdap) 1981 HPV/Cotest (21-29) 1983 CERVICAL CANCER SCREENING 01/21/1992 HPV/Cotest (30-65) 01/21/1992 PAP SMEAR 01/21/1992 BREAST CANCER SCREENING 2002 COLORECTAL SCREENING 2007 Colorectal Cancer Screening 2007 FIT-DNA Q 3 years 2007 FIT/FOBT Q 1 year 2007 Flex Sig/CT Colonography Q 5 years 2007 ZOSTER VACCINE (1 of 2) 01/21/2012 INFLUENZA VACCINE (#1) 2024 03/23/2000 RSV VACCINE (60+ or ) (1 - 1-dose 75+ series) 2037 Insurance [employer]
--- OUTSIDE RECORDS SUMMARY | 2024-10-01 17:00 | XMS_ITS | Encounter Summary ---
Author Organization [employer] [facility] Address [address] [place] [address] Care Team Providers Care Membership Solicitor Name Role Phone Unavailable Primary Care Provider Unavailabl e Encounter Details Date Type Department Care Team (Latest Contact Info) Description 04/12/2001 Outpatient Historical HIS [facility] Arash Lopes MD [address] [place] [address] TM JOINT DISORDER, UNSPEC (Primary Dx) Social History Tobacco Use Types Packs/Day Years Used Date Smoking Tobacco: Never Assessed Comments Unknown Sex and Gender Information Value Date Recorded Sex Assigned at Not on file Legal Sex Female 4:59 AM 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
--- OUTSIDE RECORDS SUMMARY | 2024-10-01 17:00 | XMS_ITS | Encounter Summary ---
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 surveil/veterans rehabilitation counselor (Primary Dx); Obesity, unspecified; Motion sickness Social History Tobacco Use Types Packs/Day Years Used Date Smoking Tobacco: Never Assessed Comments Unknown Sex and Gender Information Value Date Recorded Sex Assigned at Not on file Legal Sex Female 4:59 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
--- OUTSIDE RECORDS SUMMARY | 2024-10-01 17:00 | XMS_ITS | Encounter Summary ---
Author Organization [employer] [facility] Address [address] [place] [address] Care Team Providers Care Coal Or Ore Controller Name Role Phone Unavailable Primary Care Provider Unavailabl e Encounter Details Date Type Department Care Team (Latest Contact Info) Description 09/22/1999 Outpatient Historical HIS [facility] Arash Lopes MD [address] [place] [address] Depressive disorder, not elsewhere classified (Primary Dx) Social History Tobacco Use Types Packs/Day Years Used Date Smoking Tobacco: Never Assessed Comments Unknown Sex and Gender Information Value Date Recorded Sex Assigned at Not on file Legal Sex Female 4:59 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
--- OUTSIDE RECORDS SUMMARY | 2024-10-01 17:00 | XMS_ITS | Encounter Summary ---
Author Organization [employer] [facility] Address [address] [place] [address] Care Team Providers Care Upper And Bottom Lacer Hand Name Role Phone Unavailable Primary Care Provider Unavailabl e Encounter Details Date Type Department Care Team (Latest Contact Info) Description 05/02/1999 Outpatient Historical HIS [facility] Arash Lopes MD [address] [place] [address] Allergic rhinitis, cause unspecified (Primary Dx) Social History Tobacco Use Types Packs/Day Years Used Date Smoking Tobacco: Never Assessed Comments Unknown Sex and Gender Information Value Date Recorded Sex Assigned at Not on file 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
--- OUTSIDE RECORDS SUMMARY | 2024-10-01 17:00 | XMS_ITS | Encounter Summary ---
Author Organization [employer] [facility] Address [address] [place] [address] Care Team Providers Care Bus Driver Name Role Phone Unavailable Primary Care Provider Unavailabl e Encounter Details Date Type Department Care Team (Latest Contact Info) Description 07/01/1999 Outpatient Historical HIS [facility] Arash Lopes MD [address] [place] [address] Dyspepsia and other specified disorders of function of stomach (Primary Dx); Esophageal reflux Social History Tobacco Use Types Packs/Day Years Used Date Smoking Tobacco: Never Assessed Comments Unknown Sex and Gender Information Value Date Recorded Sex Assigned at Not on file 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
--- OUTSIDE RECORDS SUMMARY | 2024-10-01 17:00 | XMS_ITS | Encounter Summary ---
Author Organization [facility] Address [address] [place] [address] Care Team Providers Care Band Top Maker Name Role Phone Unavailable Primary Care Provider Unavailabl e Encounter Details Date Type Department Care Team (Latest Contact Info) Description 10/03/1999 Outpatient Historical HIS [facility] Arash Lopes MD [address] [place] [address] Depressive disorder, not elsewhere classified (Primary Dx); Anxiety state, unspecified; Tension headache Social History Tobacco Use Types Packs/Day Years Used Date Smoking Tobacco: Never Assessed Comments Unknown Sex and Gender Information Value Date Recorded Sex Assigned at Not on file 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
--- OUTSIDE RECORDS SUMMARY | 2024-10-01 17:00 | XMS_ITS | Encounter Summary ---
Author Organization [employer] [facility] Address [address] [place] [address] Care Team Providers Care Aircraft Cleaner Name Role Phone Unavailable Primary Care Provider Unavailabl e Encounter Details Date Type Department Care Team (Latest Contact Info) Description 12/02/1999 Outpatient Historical HIS [facility] Arash Lopes MD [address] [place] [address] Pain in joint, lower leg (Primary Dx) Social History Tobacco Use Types Packs/Day Years Used Date Smoking Tobacco: Never Assessed Comments Unknown Sex and Gender Information Value Date Recorded Sex Assigned at Not on file 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
--- OUTSIDE RECORDS SUMMARY | 2024-10-01 17:00 | XMS_ITS | Encounter Summary ---
Author Organization [facility] Address [address] [place] [address] Care Team Providers Care Field Care Advocate Name Role Phone Unavailable Primary Care Provider Unavailabl e Encounter Details Date Type Department Care Team (Latest Contact Info) Description 03/23/1997 Outpatient Historical HIS [facility] Unspecified derangement, joint, site unspecified (Primary Dx) Social History Tobacco Use Types Packs/Day Years Used Date Smoking Tobacco: Never Assessed Comments Unknown Sex and Gender Information Value Date Recorded Sex Assigned at Not on file Legal Sex Female 4:59 AM 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
--- OUTSIDE RECORDS SUMMARY | 2024-10-01 17:00 | XMS_ITS | Encounter Summary ---
Author Organization [employer] [facility] Address [address] [place] [address] Care Team Providers Care Road Machine Operator Name Role Phone Unavailable Primary Care Provider Unavailabl e Encounter Details Date Type Department Care Team (Latest Contact Info) Description 04/02/2000 Outpatient Historical HIS [facility] Arash Lopes MD [address] [place] [address] Sprain of unspecified site of back (Primary Dx) Social History Tobacco Use Types Packs/Day Years Used Date Smoking Tobacco: Never Assessed Comments Unknown Sex and Gender Information Value Date Recorded Sex Assigned at Not on file 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
--- OUTSIDE RECORDS SUMMARY | 2024-10-01 17:00 | XMS_ITS | Encounter Summary ---
Author Organization [employer] [facility] Address [address] [place] [address] Care Team Providers Care Adhesive Primer Name Role Phone Unavailable Primary Care Provider Unavailabl e Encounter Details Date Type Department Care Team (Latest Contact Info) Description 02/07/1999 Outpatient Historical HIS [facility] Arash Lopes MD [address] [place] [address] Scabies (Primary Dx) Social History Tobacco Use Types Packs/Day Years Used Date Smoking Tobacco: Never Assessed Comments Unknown Sex and Gender Information Value Date Recorded Sex Assigned at Not on file Legal Sex Female 4:59 AM 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
--- OUTSIDE RECORDS SUMMARY | 2024-10-01 17:00 | XMS_ITS | Encounter Summary ---
Author Organization [employer] [facility] Address [address] [place] [address] Care Team Providers Care Dietary Director Name Role Phone Unavailable Primary Care Provider Unavailabl e Encounter Details Date Type Department Care Team (Latest Contact Info) Description 06/06/1999 Outpatient Historical HIS [facility] Arash Lopes MD [address] [place] [address] Oral aphthae (Primary Dx); Generalized anxiety disorder Social History Tobacco Use Types Packs/Day Years Used Date Smoking Tobacco: Never Assessed Comments Unknown Sex and Gender Information Value Date Recorded Sex Assigned at Not on file Legal Sex Female 4:59 AM 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
--- OUTSIDE RECORDS SUMMARY | 2024-10-01 17:00 | XMS_ITS | Encounter Summary ---
Author Organization [employer] [facility] Address [address] [place] [address] Care Team Providers Care Receivable Clerk Name Role Phone Unavailable Primary Care Provider Unavailabl e Encounter Details Date Type Department Care Team (Latest Contact Info) Description 04/09/2000 Outpatient Historical HIS [facility] Arash Lopes MD [address] [place] [address] Dyspepsia and other specified disorders of function of stomach (Primary Dx) Social History Tobacco Use Types Packs/Day Years Used Date Smoking Tobacco: Never Assessed Comments Unknown Sex and Gender Information Value Date Recorded Sex Assigned at Not on file 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
--- OUTSIDE RECORDS SUMMARY | 2024-10-01 17:00 | XMS_ITS | Encounter Summary ---
Author Organization [employer] [facility] Address [address] [place] [address] Care Team Providers Care Heavy Equipment Service Technician Name Role Phone Unavailable Primary Care Provider Unavailabl e Encounter Details Date Type Department Care Team (Latest Contact Info) Description 01/09/2000 Outpatient Historical HIS [facility] Arash Lopes MD [address] [place] [address] Bronchitis, not specified as acute or chronic (Primary Dx) Social History Tobacco Use Types Packs/Day Years Used Date Smoking Tobacco: Never Assessed Comments Unknown Sex and Gender Information Value Date Recorded Sex Assigned at Not on file Legal Sex Female 4:59 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
--- OUTSIDE RECORDS SUMMARY | 2024-10-01 17:00 | XMS_ITS | Encounter Summary ---
Author Organization [employer] [facility] Address [address] [place] [address] Care Team Providers Care Paper Goods Machine Operator Name Role Phone Unavailable Primary Care Provider Unavailabl e Encounter Details Date Type Department Care Team (Latest Contact Info) Description 09/30/2001 Outpatient Historical HIS [facility] Arash Lopes MD [address] [place] [address] ACUTE SINUSITIS NOS (Primary Dx) Social History Tobacco Use Types Packs/Day Years Used Date Smoking Tobacco: Never Assessed Comments Unknown Sex and Gender Information Value Date Recorded Sex Assigned at Not on file Legal Sex Female 4:59 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
--- OUTSIDE RECORDS SUMMARY | 2024-10-01 17:00 | XMS_ITS | Encounter Summary ---
Author Organization [facility] Address [address] [place] [address] Care Team Providers Care Route Relief Driver Name Role Phone Unavailable Primary Care Provider Unavailabl e Encounter Details Date Type Department Care Team (Latest Contact Info) Description 07/20/2005 Outpatient Historical [facility] Ast[facility]- [address] [place] [address] Bhavik López MD NO ADDRESS ON FILE Chronic Rhinitis (Primary Dx) Social History Tobacco Use Types Packs/Day Years Used Date Smoking Tobacco: Never Assessed Comments Unknown Sex and Gender Information Value Date Recorded Sex Assigned at Not on file Legal Sex Female 4:59 AM TEST DRILLER Gender Identity Not on file Sexual Orientation Not on file documented as of this encounter Plan of Treatment Not on file documented as of this encounter Visit Diagnoses Diagnosis Chronic rhinitis- Primary documented in this encounter
--- OUTSIDE RECORDS SUMMARY | 2024-10-01 17:00 | XMS_ITS | Encounter Summary ---
Author Organization [facility] Address [address] [place] [address] Care Team Providers Care Hospice Community Liaison Name Role Phone Unavailable Primary Care Provider Unavailabl e Encounter Details Date Type Department Care Team (Latest Contact Info) Description 05/18/2005 Outpatient Historical [facility] Dermatology- [facility] [place] [address] [place] [address] Jet Pascal, [address] [place] [address] OTHER ATOPIC DERMATITIS (Primary Dx) Social History Tobacco Use Types Packs/Day Years Used Date Smoking Tobacco: Never Assessed Comments Unknown Sex and Gender Information Value Date Recorded Sex Assigned at Not on file Legal Sex Female 4:59 AM HYDRATE CONTROL 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
[2024-10-01 17:13] VITALS: BP 122/72; PULSE 59; RESP 17; TEMP 36.7; O2SAT 95; BMI 36.9
--- NOTE | 2024-10-01 17:24 | ECG_ITS ---
[facility] Test Date: 2024-10-01 Pat Name: Lilo Mayo Department: Room: Gender: Female Hose Inspector And Patcher: : 1960 Requested By: Ki Lazaro Order Number: [id number] Ray MD: Lucy Leone M.D. Measurements Intervals [place] Rate: 59 P: 64 VT: 191 QRS: -4 QRSD: 109 T: 31 QT: 415 QTc: 414 Interpretive Statements SINUS BRADYCARDIA No previous ECG available for comparison Electronically Signed On 10-04-2024 14:15:02 CDT by Lucy Leone M.D. [email or web address]
--- NOTE | 2024-10-01 18:26 | W.ED.SKABFB ---
HPI - Skin/Abscess/Foreign Bdy General: Chief complaint: Skin/Abscess/Foreign Body Stated complaint: cellulitis in right leg Time Seen by Provider: 10/01/24 18:21 History of Present Illness: 64-year-old female with a history of obesity, early diabetes, hypertension and hyperlipidemia who presents emergency room with right verdin pain swelling and redness. This been going on for couple of weeks now. She completed a course of clindamycin, although is a bit of a low dose at 300 mg 3 times daily. She has been started about 3 days ago on Bactrim 2 tabs extra strength twice a day. Says she is continued to worsen and has a few lump type areas involved. No systemic fevers. No nausea or vomiting. Related Data Home Medications ?Medication ?Instructions ?Recorded ?Confirmed lisinopril 5 mg tablet (Prinivil) 5 mg PO DAILY 05/15/19 06/24/24 furosemide 20 mg tablet (Lasix) 20 mg PO DAILY 01/27/20 06/24/24 propranolol 80 mg capsule,24 80 mg PO DAILY 01/27/20 06/24/24 hr,extended release (Inderal LA) potassium chloride 10 mEq 10 meq PO DAILY 02/24/20 06/24/24 capsule,extended release Previous Rx's ?Medication ?Instructions ?Recorded lactulose 10 gram/15 mL (15 mL) 15 ml PO BID 30 days #900 mL 05/27/20 oral solution hydrocodone 5 mg-acetaminophen 325 1 tab PO Q6H PRN pain #14 tabs 08/29/23 mg tablet naltrexone 50 mg tablet 50 mg PO DAILY #134 tabs 04/08/24 tirzepatide (weight loss) 2.5 2.5 mg (0.5 mL) SUBCUT Q7D #2 mL 06/27/24 mg/0.5 mL subcutaneous pen injector (Zepbound) orlistat 120 mg capsule 120 mg PO TID 1 month #90 caps 06/30/24 bupropion HCl 150 mg tablet,12 hr See Rx Instructions .Route 07/09/24 sustained-release .COMPLEX #60 tabs liraglutide 0.6 mg/0.1 mL (18 mg/3 1.8 mg (0.3 mL) SUBCUT DAILY 30 07/11/24 mL) subcutaneous pen injector days #9 mL (Victoza 3-Mat) atorvastatin 20 mg tablet See Rx Instructions .Route 08/14/24 .COMPLEX #90 tabs Allergies Allergy/AdvReac Type Severity Reaction Status Date / Time bee venom protein (honey bee) Allergy ALGY-Anaphy Verified 10/01/24 17:19 laxis cephalexin (From Keflex) Allergy Unknown Verified 06/24/24 15:27 Penicillins Allergy Unknown Verified 06/24/24 15:27 Review of Systems Narrative: Constitutional symptoms: Negative except as documented in HPI. Skin symptoms: Negative except as documented in HPI. Eye symptoms: Negative except as documented in HPI. ENMT symptoms: Negative except as documented in HPI. Respiratory symptoms: Negative except as documented in HPI. Cardiovascular symptoms: Negative except as documented in HPI. Gastrointestinal symptoms: Negative except as documented in HPI. Genitourinary symptoms: Negative except as documented in HPI. Musculoskeletal symptoms: Negative except as documented in HPI. Neurologic symptoms: Negative except as documented in HPI. Psychiatric symptoms: Negative except as documented in HPI. Endocrine symptoms: Negative except as documented in HPI. PFS ED PFSH: Medical History (Updated 10/01/24 @ 19:40 by Cheryl Lua MD) Spinal stenosis, cervical region Family History Mother Cancer lung cancer Father Heart disease Brother Diabetes Sister Hypertension Other Heart problem Denies family history of Anesthesia complication Bleeding disorder Social History Smoking and tobacco/nicotine status: never used tobacco/nicotine Alcohol intake: never Substance/Drug Use: never Lives independently: Yes Physical Exam Narrative: EXAM NARRATIVE: General: Alert, no acute distress. Skin: Warm, dry. Left verdin large patch of erythematous, warm and indurated skin with some hardened areas but no obvious fluctuance or abscess. Head: Normocephalic, atraumatic. Neck: Supple, trachea midline. Eye: Extraocular movements are intact. Ears, nose, mouth and throat: mucosa moist. Cardiovascular: Regular, Normal peripheral perfusion. Respiratory: Lungs are clear to auscultation, respirations are non-labored, breath sounds are equal, Symmetrical chest wall expansion. Gastrointestinal: Soft, Nontender, Non distended Musculoskeletal: Normal ROM, no deformity. Neurological: Alert and oriented, No focal neurological deficit observed. Psychiatric: Cooperative, appropriate mood & affect. Course Vital Signs: Vital signs: Vital Signs Temperature 98.1 F 10/01/24 17:13 Pulse Rate 58 L 10/01/24 19:07 Respiratory Rate 17 10/01/24 19:07 Blood Pressure 114/73 10/01/24 19:07 Pulse Oximetry 100 10/01/24 19:07 Oxygen Delivery Me thod Room Air 10/01/24 19:07 MDM - Skin/Abscess/Foreign Bdy Medicial Decision Making Medical decision making: Differential diagnosis including but not limited to and based on the above HPI, review of systems and physical exam in this patient with lower extremity swelling and redness: Cellulitis, DVT, osteomyelitis, venous stasis dermatitis. Orders placed to evaluate differential diagnosis based on the above differential, HPI and physical exam Lab Review: Laboratory results were reviewed and interpreted by myself the emergency room physician. No leukocytosis but ESR and CRP are slightly elevated. BUN and creatinine have gone up over the last couple of weeks and her creatinine is now 1.6. I think this might be related to the Bactrim so that will need to be discontinued. She is already being on clindamycin. I feel this is a failed outpatient therapy and she would do well to have a day or 2 of IV antibiotics. I reviewed the patient's medical record. Reexamination: Patient remained stable. No increased work of breathing. No altered mental status. No focal motor deficits. Consultation: I spoke with Dr. Rehana Owens who is on-call for the hospital service who agrees to admission Assessment and plan: Cellulitis Acute renal insufficiency Failed outpatient therapy ?IV Zyvox, Merrem and IV fluids. Antibiotics choice to cover gram-positive but she has some renal insufficiency so Zyvox rather than vancomycin. She is allergic to cephalosporins so Merrem versus cefepime. -I discussed the patient with the hospitalist on-call who is admitting the patient. - Discussed findings and plan with patient. Answered any questions. - All laboratory values were reviewed and interpreted personally by myself, the ER physician - All imaging was reviewed and interpreted personally by myself, the ER physician. - Evaluation and treatment of this problem were appropriate in the emergency setting Lab Data 10/01/24 18:37 10/01/24 18:37 Laboratory Results WBC 8.28 10^3/uL (3.29-11.43) 10/01/24 18:37 RBC 3.87 10^6/uL (3.85-5.65) 10/01/24 18:37 Hgb 11.20 g/dL (11.27-16.99) L 10/01/24 18:37 Hct 35.6 % (36-47) L 10/01/24 18:37 MCV 92.0 fl (85-98) 10/01/24 18:37 MCH 28.9 pg (27-33) 10/01/24 18:37 MCHC 31.5 g/dL (30-55) 10/01/24 18:37 RDW 13.9 % (12.1-15.1) 10/01/24 18:37 Plt Count 234 10^3/cmm (157-399) 10/01/24 18:37 MPV 11.1 fL (7.4-10.4) H 10/01/24 18:37 Neut % (Auto) 45.9 % 10/01/24 18:37 Lymph % (Auto) 43.6 % 10/01/24 18:37 [place] % (Auto) 7.6 % 10/01/24 18:37 Eos % (Auto) 1.8 % 10/01/24 18:37 Baso % (Auto) 0.5 % 10/01/24 18:37 Neut # (Auto) 3.80 10^3/uL (1.8-7.7) 10/01/24 18:37 Lymph # (Auto) 3.6 10^3/uL (0.8-4.8) 10/01/24 18:37 [place] # (Auto) 0.6 10^3/uL (0.2-0.9) 10/01/24 18:37 Eos # (Auto) 0.2 10^3/uL (0.0-0.8) 10/01/24 18:37 Baso # (Auto) 0.0 10^3/uL (0.0-0.1) 10/01/24 18:37 Nucleated RBC % (auto) 0 % 10/01/24 18:37 Nucleated RBCs # 0.0 /100WBC 10/01/24 18:37 ESR 16 mm/hr (0-15) H 10/01/24 18:37 Sodium 140 mmol/L (136-145) 10/01/24 18:37 Potassium 4.0 mmol/L (3.5-5.1) 10/01/24 18:37 Chloride 102 mmol/L (98-107) 10/01/24 18:37 Carbon Dioxide 26 mmol/L (22-29) 10/01/24 18:37 Anion Gap 16.0 (5-19) 10/01/24 18:37 BUN 21 mg/dL (8-23) 10/01/24 18:37 Creatinine 1.6 mg/dL (0.5-0.9) H 10/01/24 18:37 GFR Calculation 32.7 mL/min (90-130) L 10/01/24 18:37 Glucose 87 mg/dL (65-115) 10/01/24 18:37 Calculated Osmolality 292 mOsm/kg (285-295) 10/01/24 18:37 Calcium 8.6 mg/dL (8.5-10.5) 10/01/24 18:37 Total Bilirubin 0.4 mg/dL (0.15-1.2) 10/01/24 18:37 AST 23 U/L (0-32) 10/01/24 18:37 ALT 22 U/L (0-33) 10/01/24 18:37 Alkaline Phosphatase 122 U/L (35-105) H 10/01/24 18:37 C-Reactive Protein 32.1 mg/L (0.0-4.9) H 10/01/24 18:37 Total Protein 7.2 g/dL (6.6-8.7) 10/01/24 18:37 Albumin 3.9 g/dL (3.5-5.2) 10/01/24 18:37 Globulin 3.3 g/dL (1.3-4.6) 10/01/24 18:37 No radiology studies performed this visit Discharge Plan Discharge Patient Disposition: Admitted As Inpatient Clinical Impression: Cellulitis, Failure of outpatient treatment, Acute renal insufficiency Condition: Stable Coding Level of Care Code ED Wallet Assembler for Chelsie Villeda
--- NOTE | 2024-10-01 18:27 | PC.NURSE ---
antibiotics delayed d/t still pending blood culture samples
[2024-10-01 18:39] VITALS: BP 115/71; PULSE 70; O2SAT 100
[2024-10-01 18:48] LABS: Hematocrit 35.6 % (36-47); Hemoglobin 11.20 g/dL (11.27-16.99); Mean Corpuscular HGB Conc 31.5 g/dL (30-55); Mean Corpuscular Hemoglobin 28.9 pg (27-33); Mean Corpuscular Volume 92.0 fl (85-98); Nucleated Red Blood Cells % 0 %; Platelet Count 234 10^3/cmm (157-399); Red Blood Count 3.87 10^6/uL (3.85-5.65); White Blood Count 8.28 10^3/uL (3.29-11.43)
[2024-10-01 19:05] LABS: Alanine Aminotransferase 22 U/L (0-33); Albumin Level 3.9 g/dL (3.5-5.2); Alkaline Phosphatase 122 U/L (35-105); Anion Gap 16.0 (5-19); Aspartate Amino Transferase 23 U/L (0-32); Blood Urea Nitrogen 21 mg/dL (8-23); Calcium 8.6 mg/dL (8.5-10.5); Carbon Dioxide 26 mmol/L (22-29); Chloride 102 mmol/L (98-107); Creatinine Clr Calc Pharmacy 48.9649; Globulin 3.3 g/dL (1.3-4.6); Glucose 87 mg/dL (65-115); Osmolality Calculated 292 mOsm/kg (285-295); Potassium 4.0 mmol/L (3.5-5.1); Sodium 140 mmol/L (136-145); Total Protein 7.2 g/dL (6.6-8.7)
[2024-10-01 19:07] VITALS: BP 114/73; PULSE 58; RESP 17; O2SAT 100
[2024-10-01] MEDS: linezolid premix 600 MG/300 ML PREMIX 300 MG IV (19:54)
[2024-10-01 19:55] VITALS: BP 111/60; PULSE 68; RESP 17; O2SAT 100
[2024-10-01 22:00] VITALS: BMI 36.9
[2024-10-02 00:11] VITALS: BP 96/58; PULSE 66; RESP 20; TEMP 36.4; O2SAT 95
--- NOTE | 2024-10-02 01:14 | USCV_ITS ---
Lilo Mayo Age: 64 Gender: F : 1960 Exam Date: 10/02/2024 02:15 Ordering Phys: Rheana Owens MD Technologist: DO Exam Location: [facility] – [place] Indication: cellulitis, r/o dvt HISTORY: cellulitis, r/o dvt PROCEDURES: Venous duplex imaging was performed in only the right lower extremity. The following venous structures were evaluated: common femoral vein, profunda vein, proximal portion of the greater saphenous vein, superficial femoral vein, and the popliteal vein. In addition, the posterior tibial and peroneal veins were evaluated. Serial compression, augmentation maneuvers, and spectral Doppler flow evaluation were performed, which were normal. On the right side, the common femoral, superficial femoral, profunda femoral, popliteal, posterior tibial, greater saphenous veins and the peroneal veins were identified and interrogated in the standard fashion. These veins were found to be easily compressible with spontaneous blood flow. No evidence of thrombus noted. CONCLUSIONS No evidence of right lower extremity DVT. Troy Vee MD (Electronically Signed) Final Date: 02 October 2024 09:52 S
[2024-10-02] MEDS: heparin 5,000 unit/mL INJ 1 mL 5000 UNIT SUBCUT ×3 (01:21→16:26)
--- NOTE | 2024-10-02 01:23 | PM.HP ---
Providers/Chief Complaint Admitting Physician: Rehana Owens Primary Care Provider: Travis Grant MD Chief Complaint: Right lower extremity celluliti s History of Present Illness 64-year-old female with a medical history of hypertension, migraines, insulin resistance, and chronic lower extremity edema who presents with a five-week history of intermittent swelling of the right lower extremity, which more recently became persistent and associated with redness and pain. She reports that the swelling had been coming and going for about a month, but last week developed new erythema and discomfort localized to the same leg. She was evaluated in clinic last Sunday and diagnosed with cellulitis, at which time she was started on clindamycin. After four days of treatment without clinical improvement, her outpatient provider discontinued clindamycin and started her on Bactrim. She took Bactrim for two days but still noticed no change in the swelling or redness. She states the leg remained painful and swollen, and she began to have increasing difficulty with walking due to discomfort. She denies worsening redness or systemic symptoms in the past few days but does report that she experienced subjective fever and chills at the onset of symptoms last week. She did not obtain a temperature at the time, as she was too ill to check, but recalls feeling flushed and unwell overnight. She denies any prior history of cellulitis or DVT. However, she had a similar episode of right leg swelling in October 2022 that prompted an outpatient venous ultrasound, which was negative for thrombosis. That episode did not involve erythema or tenderness and resolved with time. 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 Her last endocrinology follow-up was in June. She currently does not take any medications for blood sugar control. Family history is notable for diabetes in both her brother and sister. Her daily medications include lisinopril 10 mg twice daily and propranolol 80 mg extended-release once daily for hypertension and migraines. She also takes furosemide 20 mg on an as-needed basis for lower extremity swelling, although she does not take it regularly. She took her most recent doses of both propranolol and furosemide yesterday morning. She denies any known kidney disease, though she recalls being told that her kidney numbers were mildly abnormal in the past. Review of her labs from June shows a creatinine of 1.2; this has since increased to 1.6 as of last night. She has no history of contrast exposure or nephrotoxic agents recently aside from the brief course of Bactrim, which may be contributing to the current elevation in creatinine. She denies dysuria, hematuria, or urinary frequency. She has chronic back pain attributed to a protruding disc, typically managed with Mountain [place]. She denies any recent trauma to the leg, insect bites, or new exposures. She has never had an echocardiogram and has no known history of heart failure. She is not currently under regular cardiology care. She presented to the emergency department due to persistent symptoms despite outpatient antibiotic treatment. In the ED, she received one-time doses of IV meropenem and linezolid. Initial labs were notable for a CRP of 32.1 and a creatinine of 1.6 (previously 1.2). Other labs were within normal limits, including a WBC of 8.28 and stable electrolytes. Review of Systems General: Reports: 10 or more systems reviewed and unremarkable except in HPI and below Medications/Allergies Home Medications ?Medication ?Instructions ?Recorded ?Confirmed ?Last Taken ?Type lisinopril 5 mg tablet (Prinivil) 10 mg PO BID 05/15/19 10/01/24 05/15/19 History furosemide 20 mg tablet (Lasix) 20 mg PO BID 01/27/20 10/01/24 Unknown History propranolol 80 mg capsule,24 80 mg PO DAILY 01/27/20 10/01/24 Unknown History hr,extended release (Inderal LA) potassium chloride 10 mEq 10 meq PO DAILY 02/24/20 10/01/24 Unknown History capsule,extended release hydrocodone 5 mg-acetaminophen 325 1 tab PO Q6H PRN pain #14 tabs 08/29/23 10/01/24 Unknown Rx mg tablet albuterol 90 mcg/actuation aerosol See Rx Instructions .Route 10/01/24 10/01/24 Unknown History inhaler .COMPLEX PRN Wheezing estradiol 1 mg tablet 1 mg PO DAILY 10/01/24 10/01/24 Unknown History Allergies Allergy/AdvReac Type Severity Reaction Status Date / Time bee venom protein (honey bee) Allergy ALGY-Anaphy Verified 10/01/24 17:19 laxis cephalexin (From Keflex) Allergy Unknown Verified 06/24/24 15:27 Penicillins Allergy Unknown Verified 06/24/24 15:27 PFSH Acute PFSH: Medical History (Updated 10/01/24 @ 19:40 by Cheryl Lua MD) Spinal stenosis, cervical region Family History Mother Cancer lung cancer Father Heart disease Brother Diabetes Sister Hypertension Other Heart problem Denies family history of Anesthesia complication Bleeding disorder Social History Smoking and tobacco/nicotine status: never used tobacco/nicotine Alcohol intake: never Substance/Drug Use: never Lives independently: Yes Vitals/I&O/Wt Last Vital Signs Temp 97.6 F 10/02/24 00:11 Pulse 66 10/02/24 00:11 Resp 20 H 10/02/24 00:11 BP 96/58 10/02/24 00:11 Pulse Ox 95 10/02/24 00:11 O2 Del Method Room Air 10/02/24 00:11 10/01/24 10/01/24 10/02/24 14:59 22:59 06:59 Intake Total 606.667 / 606.667 Balance 606.667 / 606.667 Weight last 48 hrs Weight 113.398 kg Weight 113.398 kg Physical Exam Narrative: General: No acute distress. HEENT: NAD. CV: RRR, no m/r/g. Respiratory: Lungs CTA bilaterally. Abdomen: Soft, NT/ND, BS+. Neuro: A&O x3. Extremes: Right lower extremity with erythema, warmth, and edema. Left lower extremity without significant edema. Skin: Erythema and warmth of the right lower extremity. Data 10/01/24 18:37 10/01/24 18:37 Micro: Microbiology 10/01/24 18:58 Blood Culture - Preliminary Blood SPECIMEN COLLECTED 10/01/24 18:37 Blood Culture - Preliminary Blood SPECIMEN COLLECTED A&P Assessment and plan 1. Acute renal insufficiency: 2. Cellulitis: 3. HTN (hypertension): Plan: Impression: 64-year-old female with a complex medical history including HTN, migraines, pre-diabetes, and chronic back pain presents with right lower extremity cellulitis that has failed outpatient oral antibiotic therapy. She has associated swelling, pain, and a recent history of subjective fevers and chills. Labs are notable for NORY (Cr 1.6 from 1.2) and elevated CRP (32.1). Patient is currently hemodynamically stable and afebrile. She was initiated on IV antibiotics in the ED. # Right Lower Extremity Cellulitis Presentation is consistent with right lower extremity cellulitis given the five-week history of swelling, acute onset of erythema, warmth, pain, and recent subjective fevers/chills. The infection has not responded to trials of oral clindamycin and Bactrim. CRP is elevated at 32.1. Given the atypical duration of symptoms, a DVT needs to be ruled out despite a prior negative scan. History of MRSA in 2011, treated with I&D of a neck nodule. Plan: Continue IV antibiotic with zyvox 600 mg q12hr Venous duplex ultrasound of the right lower extremity to rule out DVT. Monitor for clinical improvement of erythema, warmth, and pain. Elevate right lower extremity. # Acute Kidney Injury Creatinine is elevated to 1.6 from a baseline of 1.2 in June 2024. This may be secondary to dehydration or a potential adverse effect from Bactrim. A 24-hour urine collection and other kidney function tests performed in June 2024 were within normal limits. Plan: IV fluids. Obtain UA. Repeat BMP in the morning to monitor renal function. Avoid nephrotoxic agents. Hold lasix Avoid hypotension Gentle hydration overnight # Chronic bilateral Lower Extremity Edema Reports intermittent right lower extremity swelling for years. A venous ultrasound in October 2022 was negative for DVT. She takes furosemide 20 mg PRN for this. She has never had an echocardiogram to evaluate for cardiac etiology. Plan: Consider echo outpatient Will hold lasix for now # Hypertension History of HTN managed with lisinopril and propranolol. BP on admission is soft Plan: Hold lisinopril 10 mg PO BID. Hold propranolol ER 80 mg PO daily. # Pre-diabetes History of pre-diabetes and insulin resistance. Previously saw endocrinology (Dr. Rodrigues) and took Victoza but is not currently on any medication for glycemic control. Last A1c and glucose levels were within normal range. Monitor blood glucose. # Chronic Back Pain History of a bad back with protruding discs. Continue [place] PRN for pain. Offered a lidocaine patch, which she has not tried for her back before. # History of MRSA History of a MRSA-positive neck nodule requiring I&D in 2011. No recurrence reported. Maintain contact precautions as per hospital policy. Prophylaxis Heparin 5000 units q8hr PDMP PDMP Reviewed: Not Reviewed Attestations Medical Necessity Statement*: Anticipate over 2 midnight stay for treatment of cellulitis requiring IV abx. Coding Level of Care Code Acute Code for Chg Fwd Diagnoses Acute renal insufficiency N28.9 Cellulitis L03.90 HTN (hypertension) I10
[2024-10-02] MEDS: HYDROcodone-acetaminophen 5-325 mg Tablet 1 TAB PO (01:32)
[2024-10-02 03:04] LABS: Glucose Urine UA Negative (Normal); Nitrate Urine Negative (Negative); Specific Gravity, Urine 1.010 (1.005-1.030)
[2024-10-02 04:00] VITALS: BP 96/54; PULSE 56; RESP 16; TEMP 36.4; O2SAT 96
[2024-10-02] MEDS: linezolid premix 600 MG/300 ML PREMIX 300 MG IV ×2 (06:01→18:09)
[2024-10-02 07:38] VITALS: BP 96/58; PULSE 56; RESP 16; TEMP 36.4; O2SAT 98
[2024-10-02 11:42] VITALS: BP 101/63; PULSE 55; RESP 18; TEMP 36.4; O2SAT 97
--- NOTE | 2024-10-02 11:46 | USCV_ITS ---
Lilo Mayo Age: 64 Gender: F : 1960 Exam Date: 10/02/2024 12:08 Ordering Phys: Kady Vann MD Technologist: Exam Location: [facility] [place] Indication: cp sob leg swelling BP: 132 / 83 HR: 117 Rhythm: Sinus Technical Quality: Adequate MEASUREMENTS (Male / Female) Normal Values 2D ECHO LV Diastolic Diameter PLAX 4.7 cm 4.2 - 5.9 / 3.9 - 5.3 cm IVS Diastolic Thickness 1.0 cm 0.6 - 1.0 / 0.6 - 0.9 cm IVS Systolic Thickness 1.8 cm LVPW Diastolic Thickness 1.0 cm 0.6 - 1.0 / 0.6 - 0.9 cm LVPW Systolic Thickness 1.5 cm LVOT Diameter 2.0 cm LV Ejection Fraction 2D Teich 74.2 % LV Ejection Fraction MOD 4C 72.1 % LV Ejection Fraction MOD 2C 64.2 % LV Ejection Fraction 2C AL 65.4 % LA Diameter 3.2 cm RA Systolic Volume 4C AL 43.1 ml RA Systolic Volume 4C MOD 42.6 ml Aorta at Sinotubular Diameter 2.8 cm IVC Diameter 2.4 cm M-MODE LA Ao Ratio MM 1.4 AV Cusp Separation MM 2.0 cm DOPPLER AV Peak Velocity 163.0 cm/s LVOT Peak Velocity 125.0 cm/s AV Area Cont Eq vti 2.7 cm squared AV Area Cont Eq pk 2.5 cm squared MV Area PHT 3.5 cm squared Mitral E to A Ratio 1.2 TV Peak Velocity 219.5 cm/s TR Peak Velocity 267.0 cm/s TR Peak Gradient 28.5 mmHg TV Peak E Velocity 75.0 cm/s PV Peak Velocity 104.0 cm/s FINDINGS Left Ventricle Normal left ventricular size, systolic function and wall thickness, with no regional wall motion abnormalities. Left ventricular ejection fraction is estimated at 60 %. Grade II/IV diastolic dysfunction, moderately elevated filling pressures. Right Ventricle The right ventricle is normal in size and function. Right Atrium The right atrium is normal in size. Left Atrium The left atrium is normal in size. Mitral Valve Thickened mitral valve. No mitral valve stenosis. Mild mitral valve regurgitation. Aortic Valve Moderate aortic valve calcification. No aortic valve stenosis. Trace aortic valve regurgitation. Tricuspid Valve Structurally normal tricuspid valve without significant stenosis or regurgitation. Pulmonary artery systolic pressure is normal. Pulmonic Valve Structurally normal pulmonic valve without significant stenosis. There is no pulmonic regurgitation. Pericardium Normal pericardium without effusion. Aorta Normal ascending aorta dimension. IVC The inferior vena cava appears normal. CONCLUSIONS Normal left ventricular size, systolic function and wall thickness, with no regional wall motion abnormalities. Left ventricular ejection fraction is estimated at 60 %. Grade II/IV diastolic dysfunction, moderately elevated filling pressures. Thickened mitral valve. No mitral valve stenosis. Mild mitral valve regurgitation. There is no pericardial effusion. Right atrial pressure is around 5 mm of mercury. Brittaney Sosa MD (Electronically Signed) Final Date: 02 October 2024 19:56 S
--- NOTE | 2024-10-02 13:37 | USCV_ITS ---
Lilo Mayo Age: 64 Gender: F : 1960 Exam Date: 10/02/2024 13:53 Ordering Phys: Kady Vann MD Technologist: R [place] [facility] [place]: swelling HISTORY: Lower extremity swelling. PROCEDURES: Venous duplex imaging was performed in only the left lower extremity. Serial compression, augmentation maneuvers, and spectral Doppler flow evaluation were performed. FINDINGS: No evidence of DVT seen in any vessel visualized at this time. CONCLUSIONS No evidence of left lower extremity DVT. Troy Vee MD (Electronically Signed) Final Date: 02 October 2024 15:12 S
--- NOTE | 2024-10-02 14:09 | PM.MISC ---
Miscellaneous Note Note: Patient seen this morning. I believe she is in heart failure and has a cardiorenal syndrome. Creatinine is 1.6 on admission. I will stop IV fluids going forward. She has to plus edema bilateral lower extremity up to thighs. Flank and dependent edema present. I will diurese with Lasix 40 IV daily at this time. Accurate output needed. Check echocardiogram. She states she is on a water pill and has heart problems in the family . We will check echocardiogram. Also check venous Doppler right leg is only the left leg was done. We will rule out DVT. She states her shoes feel tighter than before and has had lower extremity edema for the last 5 days or presenting to the hospital and eventually her left leg became very erythematous. Check hemoglobin A1c, TSH, lipid profile for risk stratification. She states her blood pressure has been on the lower side. We will hold home propranolol and lisinopril. I will order Lasix 40 IV x 1 and monitor response.. Recheck BMP around 6 PM.
[2024-10-02] MEDS: FUROsemide 10 mg/mL SDV 4mL 40 MG IVP (14:18)
[2024-10-02 16:00] VITALS: BP 112/63; PULSE 57; RESP 17; TEMP 36.6; O2SAT 97
[2024-10-02] MEDS: ondansetron 2 mg/ML SDV 2 mL 4 MG IVP (18:20)
[2024-10-02 18:43] LABS: Anion Gap 17.0 (5-19); Blood Urea Nitrogen 15 mg/dL (8-23); Calcium 8.8 mg/dL (8.5-10.5); Carbon Dioxide 26 mmol/L (22-29); Chloride 103 mmol/L (98-107); Creatinine Clr Calc Pharmacy 62.3209; Glucose 108 mg/dL (65-115); Osmolality Calculated 295 mOsm/kg (285-295); Potassium 4.0 mmol/L (3.5-5.1); Sodium 142 mmol/L (136-145)
[2024-10-02 20:00] VITALS: BP 113/70; PULSE 59; RESP 16; TEMP 36.6; O2SAT 98
[2024-10-03] VITALS: BP 115/68; PULSE 61; RESP 16; TEMP 36.7; O2SAT 99
[2024-10-03] MEDS: heparin 5,000 unit/mL INJ 1 mL 5000 UNIT SUBCUT ×3 (01:19→18:39)
[2024-10-03] MEDS: HYDROcodone-acetaminophen 5-325 mg Tablet 1 TAB PO (01:26)
[2024-10-03 04:00] VITALS: BP 121/72; PULSE 60; RESP 16; TEMP 36.6; O2SAT 93
[2024-10-03 05:08] LABS: Hematocrit 33.2 % (36-47); Hemoglobin 10.80 g/dL (11.27-16.99); Mean Corpuscular HGB Conc 32.5 g/dL (30-55); Mean Corpuscular Hemoglobin 29.5 pg (27-33); Mean Corpuscular Volume 90.7 fl (85-98); Nucleated Red Blood Cells % 0 %; Platelet Count 204 10^3/cmm (157-399); Red Blood Count 3.66 10^6/uL (3.85-5.65); White Blood Count 5.65 10^3/uL (3.29-11.43)
[2024-10-03 05:34] LABS: Procalcitonin 0.16 ng/mL (0-0.5)
[2024-10-03 05:50] LABS: Anion Gap 15.6 (5-19); Blood Urea Nitrogen 13 mg/dL (8-23); Calcium 8.6 mg/dL (8.5-10.5); Carbon Dioxide 28 mmol/L (22-29); Chloride 102 mmol/L (98-107); Creatinine Clr Calc Pharmacy 62.3209; Glucose 99 mg/dL (65-115); Osmolality Calculated 292 mOsm/kg (285-295); Potassium 4.6 mmol/L (3.5-5.1); Sodium 141 mmol/L (136-145)
[2024-10-03] MEDS: linezolid premix 600 MG/300 ML PREMIX 300 MG IV ×2 (06:13→18:39)
[2024-10-03 08:00] VITALS: BP 114/62; PULSE 58; RESP 15; TEMP 36.6; O2SAT 97
[2024-10-03] MEDS: FUROsemide 10 mg/mL SDV 4mL 40 MG IVP (08:59)
[2024-10-03] MEDS: ondansetron 2 mg/ML SDV 2 mL 4 MG IVP ×2 (08:59→18:46)
[2024-10-03 12:00] VITALS: BP 118/65; PULSE 75; RESP 15; TEMP 36.7; O2SAT 97
--- NOTE | 2024-10-03 14:52 | P.PN_ITS ---
Subjective 2 Subjective: Seen this morning. Creatinine improved to 1.3. Lower extremity edema slightly improved. Redness on right chest has slightly improved as well. Patient states that she has developed loose stools secondary to antibiotic usage. Vitals/I&O/Wt Last Vital Signs Temp 98.1 F 10/03/24 12:00 Pulse 75 10/03/24 12:00 Resp 15 10/03/24 12:00 BP 118/65 10/03/24 12:00 Pulse Ox 97 10/03/24 12:00 O2 Del Method Room Air 10/03/24 12:00 10/02/24 10/03/24 10/03/24 22:59 06:59 14:59 Intake Total 540 / 2320 780 / 780 Output Total 1950 / 2650 350 / 3000 300 / 300 Balance -1410 / -330 -350 / -680 480 / 480 Weight last 48 hrs Weight 120.202 kg Weight 120.656 kg Weight 113.398 kg Weight 113.398 kg Physical Exam 2 Narrative: General: No acute distress. HEENT: NAD. CV: RRR, no m/r/g. Respiratory: Lungs CTA bilaterally. Abdomen: Soft, NT/ND, BS+. Neuro: A&O x3. Extremes: Bilateral lower extremity edema is improving. Erythema is improving. Data 10/03/24 04:54 10/03/24 04:54 Micro: Microbiology 10/01/24 18:58 Blood Culture - Preliminary Blood NEGATIVE TO DATE 10/01/24 18:37 Blood Culture - Preliminary Blood NEGATIVE TO DATE A&P Assessment and plan 1. Acute renal insufficiency: 2. Cellulitis: 3. HTN (hypertension): Plan: Impression: 64-year-old female with a complex medical history including HTN, migraines, pre- diabetes, and chronic back pain presents with right lower extremity cellulitis that has failed outpatient oral antibiotic therapy. She has associated swelling, pain, and a recent history of subjective fevers and chills. Labs are notable for NORY (Cr 1.6 from 1.2) and elevated CRP (32.1). Patient is currently hemodynamically stable and afebrile. She was initiated on IV antibiotics in the ED. # Right Lower Extremity Cellulitis Presentation is consistent with right lower extremity cellulitis given the five- week history of swelling, acute onset of erythema, warmth, pain, and recent subjective fevers/chills. The infection has not responded to trials of oral clindamycin and Bactrim. CRP is elevated at 32.1. Given the atypical duration of symptoms, a DVT needs to be ruled out despite a prior negative scan. History of MRSA in 2011, treated with I&D of a neck nodule. Plan: Continue IV antibiotic with zyvox 600 mg q12hr Venous duplex ultrasound of the right lower extremity to rule out DVT. Monitor for clinical improvement of erythema, warmth, and pain. Elevate right lower extremity. # Acute Kidney Injury Creatinine is elevated to 1.6 from a baseline of 1.2 in June 2024. This may be secondary to dehydration or a potential adverse effect from Bactrim. A 24-hour urine collection and other kidney function tests performed in June 2024 were within normal limits. Plan: IV fluids. Obtain UA. Repeat BMP in the morning to monitor renal function. Avoid nephrotoxic agents. Hold lasix Avoid hypotension Gentle hydration overnight # Chronic bilateral Lower Extremity Edema Reports intermittent right lower extremity swelling for years. A venous ultrasound in October 2022 was negative for DVT. She takes furosemide 20 mg PRN for this. She has never had an echocardiogram to evaluate for cardiac etiology. Plan: Consider echo outpatient Will hold lasix for now # Hypertension History of HTN managed with lisinopril and propranolol. BP on admission is soft Plan: Hold lisinopril 10 mg PO BID. Hold propranolol ER 80 mg PO daily. # Pre-diabetes History of pre-diabetes and insulin resistance. Previously saw endocrinology (Dr. Rodrigues) and took Victoza but is not currently on any medication for glycemic control. Last A1c and glucose levels were within normal range. Monitor blood glucose. # Chronic Back Pain History of a bad back with protruding discs. Continue [place] PRN for pain. Offered a lidocaine patch, which she has not tried for her back before. # History of MRSA History of a MRSA-positive neck nodule requiring I&D in 2011. No recurrence reported. Maintain contact precautions as per hospital policy. Prophylaxis Heparin 5000 units q8hr _ 10/03/2024 Echo shows diastolic dysfunction grade 1/ 4. Will order Lasix 40 IV daily. Stop linezolid. Switch to doxycycline 100 twice daily She will need cardiology follow-up as an outpatient. No evidence of DVT bilateral lower extremities. If patient continues to improve we will plan to discharge home in a.m. PDMP PDMP Reviewed: Not Reviewed Attestations 2 Medical Necessity Statement*: Requires IV diuresis with Lasix today. Continue antibiotics for cellulitis. Plan for discharge in a.m. if remains stable by tomorrow. Diagnoses Acute renal insufficiency N28.9 Cellulitis L03.90 HTN (hypertension) I10
[2024-10-03 16:00] VITALS: BP 113/64; PULSE 58; RESP 16; TEMP 36.6; O2SAT 96
--- NOTE | 2024-10-03 21:05 | PC.NURSE ---
IV Patient IV to L AC leaking. IV to L AC removed intact, 2x2 gauze and paper tape placed to site. This nurse attempted 20ga IV insertion to R FA. Patient did not tolerate well, became nauseated during insertion attempt. Attempt stopped and catheter removed intact. Patient voices refusal of IV insertion until the AM if the physician requires it. Night time hospitalist to be notified by this nurse.
[2024-10-03 21:18] VITALS: BP 116/63; PULSE 100; RESP 17; TEMP 36.7; O2SAT 95
[2024-10-04 00:24] VITALS: BP 118/68; PULSE 84; RESP 18; TEMP 36.7; O2SAT 94
[2024-10-04] MEDS: heparin 5,000 unit/mL INJ 1 mL 5000 UNIT SUBCUT (00:30)
[2024-10-04 03:29] LABS: Anion Gap 15.8 (5-19); Blood Urea Nitrogen 9 mg/dL (8-23); Calcium 8.9 mg/dL (8.5-10.5); Carbon Dioxide 28 mmol/L (22-29); Chloride 100 mmol/L (98-107); Creatinine Clr Calc Pharmacy 67.3749; Glucose 100 mg/dL (65-115); Osmolality Calculated 289 mOsm/kg (285-295); Potassium 3.8 mmol/L (3.5-5.1); Sodium 140 mmol/L (136-145)
[2024-10-04 05:07] VITALS: BP 120/69; PULSE 89; RESP 18; TEMP 36.7; O2SAT 95
--- NOTE | 2024-10-04 06:36 | PM.PN ---
Vitals/I&O/Wt Last Vital Signs Temp 98.1 F 10/04/24 05:07 Pulse 89 10/04/24 05:07 Resp 18 10/04/24 05:07 BP 120/69 10/04/24 05:07 Pulse Ox 95 10/04/24 05:07 O2 Del Method Room Air 10/03/24 16:00 10/03/24 10/03/24 10/04/24 14:59 22:59 06:59 Intake Total 780 / 780 780 / 1560 900 / 2460 Output Total 300 / 300 300 / 600 1500 / 2100 Balance 480 / 480 480 / 960 -600 / 360 Weight last 48 hrs Weight 120.202 kg Weight 120.202 kg Data 10/03/24 04:54 10/04/24 02:52 A&P PDMP PDMP Reviewed: Not Reviewed Coding Level of Care Code Acute Code for Chg Christiana
[2024-10-04 08:00] VITALS: BP 120/74; PULSE 62; RESP 16; TEMP 36.5; O2SAT 98
--- NOTE | 2024-10-04 08:06 | P.DS_ITS ---
Discharge Providers Date of Admission: 10/01/24 19:38 Date of Discharge: October 04, 2024 Attending Provider at Admission: Rehana Owens Attending Provider at Discharge: Kady Vann MD Primary Care Provider: Travis Grant MD Diagnoses at Discharge Discharge Diagnosis 1. Acute renal insufficiency: 2. Cellulitis: 3. HTN (hypertension): Reason for Visit Reason for Visit: Right lower extremity celluliti s Hospital Course Hospital Course Patient was admitted for diastolic heart failure and right lower extremity cellulitis. She was diuresed during hospital stay. Initially given IV linezolid which was stopped and switched to oral doxycycline. No evidence of DVT on venous Dopplers. Outpatient cardiology follow-up given to patient. Also had evidence of cardiorenal syndrome. Creatinine improved with diuresis. NORY improved. Physical Exam Narrative: General: No acute distress. HEENT: NAD. CV: RRR, no m/r/g. Respiratory: Lungs CTA bilaterally. Abdomen: Soft, NT/ND, BS+. Neuro: A&O x3. Extremes: Bilateral lower extremity edema is improving. Erythema is improving. Discharge Data Studies Completed and Pending Completed Studies During Hospitalization Category Date [place] [id number] Routine Ultrasound 10/02/24 01:14 Completed CV. echo complete* [id number] Routine Ultrasound 10/02/24 11:46 Completed US venous duplex lower extremity LT [CV venous duplex Ultrasound 10/02/24 13:37 [place] [id number]] Routine Pending at discharge Category Date Time Status Blood Culture Stat Lab 10/01/24 18:58 Results Laboratory Results WBC 5.65 10^3/uL (3.29-11.43) 10/03/24 04:54 RBC 3.66 10^6/uL (3.85-5.65) L 10/03/24 04:54 Hgb 10.80 g/dL (11.27-16.99) L 10/03/24 04:54 Hct 33.2 % (36-47) L 10/03/24 04:54 MCV 90.7 fl (85-98) 10/03/24 04:54 MCH 29.5 pg (27-33) 10/03/24 04:54 MCHC 32.5 g/dL (30-55) 10/03/24 04:54 RDW 13.3 % (12.1-15.1) 10/03/24 04:54 Plt Count 204 10^3/cmm (157-399) 10/03/24 04:54 MPV 11.0 fL (7.4-10.4) H 10/03/24 04:54 Neut % (Auto) 41.2 % 10/03/24 04:54 Lymph % (Auto) 48.3 % 10/03/24 04:54 [place] % (Auto) 7.1 % 10/03/24 04:54 Eos % (Auto) 2.5 % 10/03/24 04:54 Baso % (Auto) 0.5 % 10/03/24 04:54 Neut # (Auto) 2.33 10^3/uL (1.8-7.7) 10/03/24 04:54 Lymph # (Auto) 2.7 10^3/uL (0.8-4.8) 10/03/24 04:54 [place] # (Auto) 0.4 10^3/uL (0.2-0.9) 10/03/24 04:54 Eos # (Auto) 0.1 10^3/uL (0.0-0.8) 10/03/24 04:54 Baso # (Auto) 0.0 10^3/uL (0.0-0.1) 10/03/24 04:54 Nucleated RBC % (auto) 0 % 10/03/24 04:54 Nucleated RBCs # 0.0 /100WBC 10/03/24 04:54 ESR 16 mm/hr (0-15) H 10/01/24 18:37 Sodium 140 mmol/L (136-145) 10/04/24 02:52 Potassium 3.8 mmol/L (3.5-5.1) 10/04/24 02:52 Chloride 100 mmol/L (98-107) 10/04/24 02:52 Carbon Dioxide 28 mmol/L (22-29) 10/04/24 02:52 Anion Gap 15.8 (5-19) 10/04/24 02:52 BUN 9 mg/dL (8-23) 10/04/24 02:52 Creatinine 1.2 mg/dL (0.5-0.9) H 10/04/24 02:52 GFR Calculation 45.5 mL/min (90-130) L 10/04/24 02:52 Glucose 100 mg/dL (65-115) 10/04/24 02:52 Calculated Osmolality 289 mOsm/kg (285-295) 10/04/24 02:52 Calcium 8.9 mg/dL (8.5-10.5) 10/04/24 02:52 Total Bilirubin 0.4 mg/dL (0.15-1.2) 10/01/24 18:37 AST 23 U/L (0-32) 10/01/24 18:37 ALT 22 U/L (0-33) 10/01/24 18:37 Alkaline Phosphatase 122 U/L (35-105) H 10/01/24 18:37 C-Reactive Protein 32.1 mg/L (0.0-4.9) H 10/01/24 18:37 Total Protein 7.2 g/dL (6.6-8.7) 10/01/24 18:37 Albumin 3.9 g/dL (3.5-5.2) 10/01/24 18:37 Globulin 3.3 g/dL (1.3-4.6) 10/01/24 18:37 Procalcitonin 0.16 ng/mL (0-0.5) 10/03/24 04:54 Urine Color Yellow (Yellow) 10/02/24 02:15 Urine Appearance Clear (CLEAR) 10/02/24 02:15 Urine pH 6.0 (5-7) 10/02/24 02:15 Ur Specific [place] 1.010 (1.005-1.030) 10/02/24 02:15 Urine Protein Negative (Negative) 10/02/24 02:15 Urine Glucose (UA) Negative (Normal) 10/02/24 02:15 Urine Ketones Negative (Negative) 10/02/24 02:15 Urine Blood Negative (Negative) 10/02/24 02:15 Urine Nitrate Negative (Negative) 10/02/24 02:15 Urine Bilirubin Negative (Negative) 10/02/24 02:15 Urine Urobilinogen 1.0 mg/dL (Negative) 10/02/24 02:15 Ur Leukocyte Esterase Negative (Negative) 10/02/24 02:15 Urine RBC 0-2 /hpf (0-2) 10/02/24 02:15 Urine WBC 0-5 /hpf (0-5) 10/02/24 02:15 Ur Squamous Epith Cells 0-5 /hpf (0-5) 10/02/24 02:15 Amorphous Sediment Not Reportable 10/02/24 02:15 Urine Bacteria None seen /hpf (NONE) 10/02/24 02:15 Hyaline Casts 0-4 /lpf H 10/02/24 02:15 Vitals Last Vital Signs Temp 97.7 F 10/04/24 08:00 Pulse 62 10/04/24 08:00 Resp 16 10/04/24 08:00 BP 120/74 10/04/24 08:00 Pulse Ox 98 10/04/24 08:00 O2 Del Method Room Air 10/04/24 08:00 Discharge Plan Discharge Patient Disposition: Home Condition: Stable Prescriptions: New ondansetron 4 mg tablet,disintegrating 4 mg PO Q8H PRN (Reason: nausea and vomiting) Qty: 10 0RF Continued propranolol [Inderal LA] 80 mg capsule,extended release 24 hr 80 mg PO DAILY potassium chloride 10 mEq capsule, extended release 10 meq PO DAILY estradiol 1 mg Tablet 1 mg PO DAILY albuterol 90 mcg/actuation Aerosol See Rx Instructions .ROUTE .COMPLEX PRN (Reason: Wheezing) Rx Instructions: 1 puff Q4H Changed furosemide [Lasix] 20 mg tablet 40 mg PO DAILY Qty: 30 0RF Held lisinopril [Prinivil] 5 mg tablet 10 mg PO BID Hold Instructions: see pcp Discontinued hydrocodone-acetaminophen 5-325 mg tablet 1 tab PO Q6H PRN (Reason: pain) Qty: 14 0RF Discharge Order = DC NOW: Discharge Order (Routine); Ordered 10/04/24 Ordered By: Kady Vann Other Ambulatory Orders: Basic Metabolic Panel (Routine) Timeframe: 3 Days Facility: [facility] - Location: Lab - Main Lab Ordered By: Kady Vann Referrals: Travis Grant MD [Primary Care Provider, Family Practice] - 1-3 days Referral Note: We have notified your physician's clinic of the need for a follow-up appointment to be scheduled. If you have not heard from them within the next 2 business days, please call them directly. Lucy Leone MD [Physician, Cardiology] - 4-7 days Referral Note: We have notified your physician's clinic of the need for a follow-up appointment to be scheduled. If you have not heard from them within the next 2 business days, please call them directly. Discharge Diet: Cardiac and Low Salt Discharge Activity: Resume usual activity Patient Instructions: Cellulitis, Doxycycline (By mouth), Ondansetron (By mouth), Opioid Safety, Patient Portal & [place] Instructions Discharge Attestations Time Spent in Discharge Care*: less than 30 min Quality Metrics Clinical Quality Measures [ No reported AMI, CVA or VTE this stay] Coding Level of Care Code Acute Code for Chg Fwd Diagnoses Acute renal insufficiency N28.9 Cellulitis L03.90 HTN (hypertension) I10
[2024-10-04 10:30] VITALS: BP 120/80; PULSE 60; RESP 16; TEMP 37; O2SAT 98
--- NOTE | 2024-10-04 10:30 | PC.NURSE ---
Patient discharged at this time. Reviewed discharge instructions with patient and son. Patient verbalized understanding including the changes made to her Lasix. Patient wheel chaired to private car. Patient is A&Ox3. Respirations even and non-labored on room air.
== END 2024-10-04 10:30 | disposition home or self-care (01) | DRG 602 ==
LOC: ER 19:39 → MEDSURG 20:20
PROVIDERS: Emergency Medicine; Admitting Provider Hospitalist; Emergency Provider Emergency Medicine; PCP Family Medicine; Visit Provider Internal Medicine
DX: L03.115 Cellulitis of right lower limb (principal); I50.33 Acute on chronic diastolic (congestive) heart failure; N17.9 Acute kidney failure, unspecified; I13.0 Hypertensive heart and chronic kidney disease with heart failure and stage 1 through stage 4 chronic kidney disease, or unspecified chronic kidney disease; N18.9 Chronic kidney disease, unspecified; Z79.890 Hormone replacement therapy; E66.9 Obesity, unspecified; Z68.39 Body mass index [BMI] 39.0-39.9, adult; E78.5 Hyperlipidemia, unspecified; M48.02 Spinal stenosis, cervical region; E88.819 Insulin resistance, unspecified; G89.29 Other chronic pain; Z86.14 Personal history of Methicillin resistant Staphylococcus aureus infection
CPT/HCPCS: 36415; 80048; 80053; 81001; 84145; 85025; 85651; 86140; 87040; 93005; 93306; 93971; 96365; 96367; 96372; 96375; 99285; J1644; J1938; J2020; J2185; J2405; J3372; J7120; J9999; Q0162

== ENCOUNTER → 2024-10-29 09:52 | Outpatient (BNVA) | payer OTHER, SELFPAY | PROVIDERS: PCP Family Medicine; Visit Provider Internal Medicine Cardiovascular Disease | DX: R60.9 Edema, unspecified (principal); I10 Essential (primary) hypertension; I50.30 Unspecified diastolic (congestive) heart failure; L03.90 Cellulitis, unspecified; N28.9 Disorder of kidney and ureter, unspecified | CPT/HCPCS: 36415; 80053; 83735; 83880 ==

== ENCOUNTER 2024-11-14 07:15 | Outpatient (CLI) | payer OTHER, SELFPAY ==
[2024-11-14 08:15] LABS: Anion Gap 13.9 (5-19); Blood Urea Nitrogen 15 mg/dL (8-23); Calcium 9.2 mg/dL (8.5-10.5); Carbon Dioxide 27 mmol/L (22-29); Chloride 106 mmol/L (98-107); Glucose 116 mg/dL (65-115); NT Pro B Type Natriuretic Pept < 36 pg/mL (0-125); Osmolality Calculated 298 mOsm/kg (285-295); Potassium 3.9 mmol/L (3.5-5.1); Sodium 143 mmol/L (136-145)
== END 2024-11-14 07:16 | disposition home or self-care (01) ==
PROVIDERS: PCP Family Medicine; Visit Provider Internal Medicine Cardiovascular Disease
DX: I10 Essential (primary) hypertension (principal); I50.9 Heart failure, unspecified
CPT/HCPCS: 80048; 83880

== ENCOUNTER 2024-12-11 06:49 | Outpatient (CLI) | payer OTHER, SELFPAY ==
[2024-12-11 07:59] LABS: Anion Gap 14.9 (5-19); Blood Urea Nitrogen 10 mg/dL (8-23); Calcium 9.2 mg/dL (8.5-10.5); Carbon Dioxide 25 mmol/L (22-29); Chloride 104 mmol/L (98-107); Glucose 126 mg/dL (65-115); Magnesium 2.1 mg/dL (1.7-2.3); NT Pro B Type Natriuretic Pept 56 pg/mL (0-125); Osmolality Calculated 291 mOsm/kg (285-295); Potassium 3.9 mmol/L (3.5-5.1); Sodium 140 mmol/L (136-145)
== END 2024-12-11 06:50 | disposition home or self-care (01) ==
PROVIDERS: PCP Family Medicine; Visit Provider Internal Medicine Cardiovascular Disease
DX: R00.2 Palpitations (principal); R60.0 Localized edema; I10 Essential (primary) hypertension
CPT/HCPCS: 36415; 80048; 83735; 83880

== ENCOUNTER → 2025-01-01 14:56 | Outpatient (BNVA) | payer OTHER, SELFPAY | PROVIDERS: PCP Family Medicine; Visit Provider Orthopaedic Surgery | DX: M51.362 Other intervertebral disc degeneration, lumbar region with discogenic back pain and lower extremity pain (principal); M48.062 Spinal stenosis, lumbar region with neurogenic claudication; G89.29 Other chronic pain | CPT/HCPCS: 72110 ==

== ENCOUNTER 2025-01-13 06:30 | Outpatient (CLI) | payer OTHER, SELFPAY ==
[2025-01-13 08:01] LABS: Alanine Aminotransferase 36 U/L (0-33); Albumin Level 4.1 g/dL (3.5-5.2); Alkaline Phosphatase 104 U/L (35-105); Anion Gap 14.2 (5-19); Aspartate Amino Transferase 35 U/L (0-32); Blood Urea Nitrogen 16 mg/dL (8-23); Calcium 9.1 mg/dL (8.5-10.5); Carbon Dioxide 24 mmol/L (22-29); Chloride 106 mmol/L (98-107); Globulin 2.9 g/dL (1.3-4.6); Glucose 99 mg/dL (65-115); Magnesium 2.3 mg/dL (1.7-2.3); NT Pro B Type Natriuretic Pept 142 pg/mL (0-125); Osmolality Calculated 291 mOsm/kg (285-295); Potassium 4.2 mmol/L (3.5-5.1); Sodium 140 mmol/L (136-145); Total Protein 7.0 g/dL (6.6-8.7)
[2025-01-13 09:53] LABS: Estmated Average Glucose 111; Hemoglobin A1C 5.5 % (4.0-6.0)
== END 2025-01-13 06:31 | disposition home or self-care (01) ==
PROVIDERS: PCP Family Medicine; Visit Provider Internal Medicine Cardiovascular Disease
DX: I10 Essential (primary) hypertension (principal); R06.02 Shortness of breath; R00.2 Palpitations; R73.03 Prediabetes
CPT/HCPCS: 36415; 80053; 83036; 83735; 83880

== ENCOUNTER 2025-01-16 14:06 | Outpatient (CLI) | payer OTHER, SELFPAY ==
[2025-01-16] MEDS: gadobenate dimeglumine 20 mL vial IV (14:58)
--- NOTE | 2025-01-16 15:15 | MR_ITS ---
WS: [id number] MRI LUMBAR SPINE WITH CONTRAST TECHNIQUE: Sagittal T1, T2 and STIR imaging. Axial T1 and T2 imaging. Post gadolinium imaging was obtained. CLINICAL INFORMATION: back pain COMPARISON: MRI 2019 FINDINGS: Mild lumbar curve. No acute compression. Grade 1 anterolisthesis L3 on L4 with disc space narrowing and chronic spondylolysis. Incidental Tarlov cyst in the sacrum. L1-L2: Normal. L2-L3: Mild annular bulging. Moderate facet arthropathy. Spinal canal and foramen are patent. L3-L4: Grade 1 anterolisthesis with chronic spondylolysis. Progress moderate central canal stenosis with impingement on the LEFT greater than RIGHT subarticular recess. Moderate facet arthropathy. Mild LEFT greater than RIGHT foraminal narrowing. L4-L5: Mild annular bulging with slight effacement of the ventral thecal sac. Impingement of traversing LEFT greater than RIGHT L5 nerve roots progressed compared to previous. Mild facet arthropathy. Foramen are patent. L5-S1: Tiny shallow LEFT paracentral protrusion. Slight contact of the LEFT S1 nerve root. Mild facet arthropathy. Mild LEFT foraminal narrowing. Visualized pelvic bony structures: Normal. Paravertebral soft tissues: Normal. MR/MR lumbar spine wo/w con [id number] IMPRESSION: 1. Mild lumbar curve. No acute compression. Grade 1 anterolisthesis L3 on L4 w ith chronic spondylolysis. 2. Progressed moderate central canal stenosis L3-4 with impingement on the LEF T greater than RIGHT subarticular recess. Mild to moderate LEFT foraminal narro wing at this level. 3. Annular bulging L4-5 with impingement of the traversing LEFT greater than R IGHT L5 nerve roots. This is progressed compared to previous. 4. Shallow LEFT paracentral protrusion L5-S1 with slight impingement on the LE FT S1 nerve root. This appears progressed compared to previous.
== END 2025-01-16 14:07 | disposition home or self-care (01) ==
PROVIDERS: PCP Family Medicine; Visit Provider Orthopaedic Surgery
DX: M48.062 Spinal stenosis, lumbar region with neurogenic claudication (principal); M43.16 Spondylolisthesis, lumbar region; M47.816 Spondylosis without myelopathy or radiculopathy, lumbar region; G96.191 Perineural cyst; M51.360 Other intervertebral disc degeneration, lumbar region with discogenic back pain only; M48.061 Spinal stenosis, lumbar region without neurogenic claudication; M51.16 Intervertebral disc disorders with radiculopathy, lumbar region; M51.26 Other intervertebral disc displacement, lumbar region; M51.27 Other intervertebral disc displacement, lumbosacral region
CPT/HCPCS: 72158

== ENCOUNTER → 2025-01-28 08:01 | Outpatient (BNVA) | payer OTHER, SELFPAY | PROVIDERS: PCP Family Medicine; Visit Provider Student in an Organized Health Care Education/Training Program | DX: M25.562 Pain in left knee (principal); M17.0 Bilateral primary osteoarthritis of knee | CPT/HCPCS: 73560; 73565 ==

== ENCOUNTER 2025-01-28 10:56 | Outpatient (CLI) | payer OTHER, SELFPAY | END 2025-01-28 10:57 | disposition home or self-care (01) | LOC: SPT 10:57 | PROVIDERS: PCP Family Medicine; Visit Provider Student in an Organized Health Care Education/Training Program | DX: Z46.89 Encounter for fitting and adjustment of other specified devices (principal); M25.562 Pain in left knee | CPT/HCPCS: L1851 ==

== ENCOUNTER 2025-02-23 07:19 | Outpatient (CLI) | payer OTHER, SELFPAY ==
[2025-02-23 09:23] LABS: Anion Gap 11.0 (5-19); Blood Urea Nitrogen 19 mg/dL (8-23); Calcium 8.8 mg/dL (8.5-10.5); Carbon Dioxide 28 mmol/L (22-29); Chloride 103 mmol/L (98-107); Glucose 103 mg/dL (65-115); NT Pro B Type Natriuretic Pept 221 pg/mL (0-125); Osmolality Calculated 289 mOsm/kg (285-295); Potassium 4.0 mmol/L (3.5-5.1); Sodium 138 mmol/L (136-145)
== END 2025-02-23 07:20 | disposition home or self-care (01) ==
PROVIDERS: PCP Family Medicine; Visit Provider Internal Medicine Cardiovascular Disease
DX: I10 Essential (primary) hypertension (principal); I50.32 Chronic diastolic (congestive) heart failure
CPT/HCPCS: 36415; 80048; 83880

== ENCOUNTER 2025-02-26 06:57 | Emergency (ER) | payer OTHER, SELFPAY ==
[2025-02-26 07:01] VITALS: BP 161/84; PULSE 65; RESP 17; TEMP 36.4; O2SAT 97; BMI 36.9
--- NOTE | 2025-02-26 07:09 | W.ED.NAVMDI ---
HPI - Nausea/Vomiting/Diarrhea General: Chief complaint: Nausea/Vomiting/Diarrhea Stated complaint: Diarrhea / Lethargy Time Seen by Provider: 02/26/25 07:01 Source: patient Mode of arrival: ambulatory Limitations: no limitations History of Present Illness: 65-year-old female who states that she has had nausea along diarrhea since last night. States that diarrhea has been watery in nature she denies any abdominal pain states she has had some generalized weakness feels like she is getting dehydrated. States she has had multiple sick contacts and her daughter had the same earlier this week. Related Data Home Medications ?Medication ?Instructions ?Recorded ?Confirmed albuterol 90 mcg/actuation aerosol See Rx Instructions .Route 10/01/24 02/24/25 inhaler .COMPLEX PRN Wheezing furosemide 20 mg tablet (Lasix) 40 mg PO QDAY PRN 12/11/24 02/24/25 hydrocodone 5 mg-acetaminophen 325 1 tab PO BID PRN 01/13/25 02/24/25 mg tablet estradiol 1 mg tablet 2 mg PO DAILY 02/03/25 02/24/25 Previous Rx's ?Medication ?Instructions ?Recorded ondansetron 4 mg disintegrating 4 mg PO Q8H PRN nausea and 10/04/24 tablet vomiting #10 tabs atorvastatin 20 mg tablet See Rx Instructions .Route 11/21/24 .COMPLEX #90 tabs spironolactone 100 mg tablet 100 mg PO DAILY #90 tabs 01/13/25 Left Knee Medial Clinical Assessment Manager Brace #1 ea 01/28/25 empagliflozin 10 mg tablet 10 mg PO DAILY #90 tabs 02/06/25 (Jardiance) propranolol 20 mg tablet 10 mg (1/2 x 20 mg) PO BID #180 02/24/25 tabs ondansetron 4 mg disintegrating 4 mg PO Q6H PRN nausea and 02/26/25 tablet vomiting #14 tabs Allergies Allergy/AdvReac Type Severity Reaction Status Date / Time bee venom protein (honey bee) Allergy ALGY-Anaphy Verified 02/24/25 08:12 laxis cephalexin (From Keflex) Allergy Unknown Verified 02/24/25 08:12 Penicillins Allergy Unknown Verified 02/24/25 08:12 Review of Systems GI: Reports: diarrhea PFSH ED PFSH: Medical History (Updated 02/26/25 @ 08:11 by Ki Lazaro MD) Cirrhosis of liver Spinal stenosis, cervical region Family History Mother Cancer lung cancer Father Heart disease Brother Diabetes Sister Hypertension Other Heart problem Denies family history of Anesthesia complication Bleeding disorder Social History Smoking and tobacco/nicotine status: never used tobacco/nicotine Alcohol intake: never Substance/Drug Use: never Lives independently: Yes Physical Exam Const: COMMON NORMALS: no acute distress, patient oriented x3 and healthy appearing HENMT: COMMON NORMALS: normocephalic and atraumatic HEAD & SCALP: normocephalic and atraumatic Neck/C-Spine: COMMON NORMALS: full ROM and supple Chest: COMMONS NORMALS: normal inspection of the chest and normal palpation of entire chest wall Resp: COMMON NORMALS: normal respiratory effort, No retractions, No use of accessory muscles and clear to auscultation bilaterally AUSCULTATION: clear to auscultation bilaterally Cardio: COMMON NORMALS: regular rate, regular rhythm and No murmurs present (Cardio) RATE: regular rate RHYTHM: regular rhythm GI: COMMON NORMALS: Normal to inspection, nondistended, normoactive bowel sounds present, Soft to palpation, non-tender and no masses PALPATION: Yes Soft to palpation Extremity: COMMON NORMALS: normal to inspection and full ROM Neuro: COMMON NORMALS: patient oriented x3, moves all extremities and no focal motor deficits Psych: COMMON NORMALS: mental status grossly normal, Normal thought process present and cooperative THOUGHT PROCESS: Normal thought process present Skin: COMMON NORMALS: no rashes or lesions noted and no wounds GENERAL SKIN EXAM: no rashes or lesions noted Course Vital Signs: Vital signs: Vital Signs Temperature 97.6 F 02/26/25 07:01 Pulse Rate 60 02/26/25 07:44 Respiratory Rate 17 02/26/25 07:01 Blood Pressure 130/77 02/26/25 07:44 Pulse Oximetry 97 02/26/25 07:01 Oxygen Delivery Me thod Room Air 02/26/25 07:01 MDM - Nausea/Vomiting/Diarrhea Medical Decision Making 65-year-old female presents here with diarrhea along with vomiting this is likely a viral gastroenteritis she has had sick contacts with similar she has been well-appearing here feels improved after fluids blood work shows no significant abnormality abdominal exam is benign did go over these findings with her she is follow-up her PCP in 2 to 4 days return if worsening she understands agrees to plan. Medical Records I reviewed the patient's medical records. Lab Data I reviewed the patient's lab results. 02/26/25 07:11 02/26/25 07:11 Laboratory Results WBC 7.25 10^3/uL (3.29-11.43) 02/26/25 07:11 RBC 4.54 10^6/uL (3.85-5.65) 02/26/25 07:11 Hgb 13.00 g/dL (11.27-16.99) 02/26/25 07:11 Hct 40.6 % (36-47) 02/26/25 07:11 MCV 89.4 fl (85-98) 02/26/25 07:11 MCH 28.6 pg (27-33) 02/26/25 07:11 MCHC 32.0 g/dL (30-55) 02/26/25 07:11 RDW 13.3 % (12.1-15.1) 02/26/25 07:11 Plt Count 187 10^3/cmm (157-399) 02/26/25 07:11 MPV 11.2 fL (7.4-10.4) H 02/26/25 07:11 Neut % (Auto) 64.6 % 02/26/25 07:11 Lymph % (Auto) 27.6 % 02/26/25 07:11 [place] % (Auto) 5.5 % 02/26/25 07:11 Eos % (Auto) 1.1 % 02/26/25 07:11 Baso % (Auto) 0.6 % 02/26/25 07:11 Neut # (Auto) 4.69 10^3/uL (1.8-7.7) 02/26/25 07:11 Lymph # (Auto) 2.0 10^3/uL (0.8-4.8) 02/26/25 07:11 [place] # (Auto) 0.4 10^3/uL (0.2-0.9) 02/26/25 07:11 Eos # (Auto) 0.1 10^3/uL (0.0-0.8) 02/26/25 07:11 Baso # (Auto) 0.0 10^3/uL (0.0-0.1) 02/26/25 07:11 Nucleated RBC % (auto) 0 % 02/26/25 07:11 Nucleated RBCs # 0.0 /100WBC 02/26/25 07:11 Sodium 142 mmol/L (136-145) 02/26/25 07:11 Potassium 4.0 mmol/L (3.5-5.1) 02/26/25 07:11 Chloride 106 mmol/L (98-107) 02/26/25 07:11 Carbon Dioxide 26 mmol/L (22-29) 02/26/25 07:11 Anion Gap 14.0 (5-19) 02/26/25 07:11 BUN 11 mg/dL (8-23) 02/26/25 07:11 Creatinine 1.1 mg/dL (0.5-0.9) H 02/26/25 07:11 GFR Calculation 50.2 mL/min (90-130) L 02/26/25 07:11 Glucose 110 mg/dL (65-115) 02/26/25 07:11 Calculated Osmolality 294 mOsm/kg (285-295) 02/26/25 07:11 Calcium 9.3 mg/dL (8.5-10.5) 02/26/25 07:11 Total Bilirubin 0.7 mg/dL (0.15-1.2) 02/26/25 07:11 AST 33 U/L (0-32) H 02/26/25 07:11 ALT 33 U/L (0-33) 02/26/25 07:11 Alkaline Phosphatase 91 U/L (35-105) 02/26/25 07:11 Total Protein 7.5 g/dL (6.6-8.7) 02/26/25 07:11 Albumin 4.3 g/dL (3.5-5.2) 02/26/25 07:11 Globulin 3.2 g/dL (1.3-4.6) 02/26/25 07:11 Urine Color Yellow (Yellow) 02/26/25 07:11 Urine Appearance Clear (CLEAR) 02/26/25 07:11 Urine pH 5.5 (5-7) 02/26/25 07:11 Ur Specific [place] 1.014 (1.005-1.030) 02/26/25 07:11 Urine Protein Negative (Negative) 02/26/25 07:11 Urine Glucose (UA) 3+ (Normal) H 02/26/25 07:11 Urine Ketones Negative (Negative) 02/26/25 07:11 Urine Blood Negative (Negative) 02/26/25 07:11 Urine Nitrate Negative (Negative) 02/26/25 07:11 Urine Bilirubin Negative (Negative) 02/26/25 07:11 Urine Urobilinogen 0.2 mg/dL (Negative) 02/26/25 07:11 Ur Leukocyte Esterase Negative (Negative) 02/26/25 07:11 Urine RBC 0-2 /hpf (0-2) 02/26/25 07:11 Urine WBC 0-5 /hpf (0-5) 02/26/25 07:11 Ur Squamous Epith Cells 0-5 /hpf (0-5) 02/26/25 07:11 Amorphous Sediment Not Reportable 02/26/25 07:11 Urine Bacteria None seen /hpf (NONE) 02/26/25 07:11 Hyaline Casts 0.81 /lpf 02/26/25 07:11 Influenza A (PCR) Negative (Negative) 02/26/25 07:11 Influenza Type B (PCR) Negative (Negative) 02/26/25 07:11 RSV (PCR) Negative (Negative) 02/26/25 07:11 SARS-CoV-2 (PCR) Negative (Negative) 02/26/25 07:11 No radiology studies performed this visit Discharge Plan Discharge Patient Disposition: Home Clinical Impression: Diarrhea Condition: Stable Prescriptions: New ondansetron 4 mg tablet,disintegrating 4 mg PO Q6H PRN (Reason: nausea and vomiting) Qty: 14 0RF No Action furosemide [Lasix] 20 mg tablet 40 mg PO QDAY PRN (DME) Left Knee Medial Clinical Assessment Manager Brace See Rx Instructions .Route .MEDSUPPLY Qty: 1 0RF Rx Instructions: As directed propranolol 20 mg tablet 10 mg PO BID Qty: 180 3RF hydrocodone-acetaminophen 5-325 mg tablet 1 tab PO BID PRN spironolactone 100 mg tablet 100 mg PO DAILY Qty: 90 3RF atorvastatin 20 mg tablet See Rx Instructions .ROUTE .COMPLEX Qty: 90 1RF Dose Instruction: TAKE 1 TABLET BY MOUTH EVERY DAY Rx Instructions: TAKE 1 TABLET BY MOUTH EVERY DAY Jardiance 10 mg tablet 10 mg PO DAILY Qty: 90 3RF albuterol 90 mcg/actuation Aerosol See Rx Instructions .ROUTE .COMPLEX PRN (Reason: Wheezing) Rx Instructions: 1 puff Q4H ondansetron 4 mg tablet,disintegrating 4 mg PO Q8H PRN (Reason: nausea and vomiting) Qty: 10 0RF estradiol 1 mg tablet 2 mg PO DAILY Discharge Orders: Discharge ED (Routine); Ordered 02/26/25 Ordered By: Ki Lazaro Referrals: Travis Grant MD [Primary Care Provider, Family Practice] - 4-7 days Discharge Diet: Advance as tolerated Discharge Activity: Resume usual activity Patient Instructions: Diarrhea - Adult Print Language: Malay Coding Level of Care Code ED Director Of Critical Care for Chelsie Villeda
[2025-02-26] MEDS: ondansetron 2 mg/ML SDV 2 mL 4 MG IVP (07:15)
[2025-02-26 07:17] VITALS: BP 161/84
[2025-02-26 07:17] LABS: Hematocrit 40.6 % (36-47); Hemoglobin 13.00 g/dL (11.27-16.99); Mean Corpuscular HGB Conc 32.0 g/dL (30-55); Mean Corpuscular Hemoglobin 28.6 pg (27-33); Mean Corpuscular Volume 89.4 fl (85-98); Nucleated Red Blood Cells % 0 %; Platelet Count 187 10^3/cmm (157-399); Red Blood Count 4.54 10^6/uL (3.85-5.65); White Blood Count 7.25 10^3/uL (3.29-11.43)
[2025-02-26 07:39] LABS: Alanine Aminotransferase 33 U/L (0-33); Albumin Level 4.3 g/dL (3.5-5.2); Alkaline Phosphatase 91 U/L (35-105); Anion Gap 14.0 (5-19); Aspartate Amino Transferase 33 U/L (0-32); Blood Urea Nitrogen 11 mg/dL (8-23); Calcium 9.3 mg/dL (8.5-10.5); Carbon Dioxide 26 mmol/L (22-29); Chloride 106 mmol/L (98-107); Globulin 3.2 g/dL (1.3-4.6); Glucose 110 mg/dL (65-115); Osmolality Calculated 294 mOsm/kg (285-295); Potassium 4.0 mmol/L (3.5-5.1); Sodium 142 mmol/L (136-145); Total Protein 7.5 g/dL (6.6-8.7)
[2025-02-26 07:44] VITALS: BP 130/77; PULSE 60
[2025-02-26 08:02] LABS: Glucose Urine UA 3+ (Normal); Nitrate Urine Negative (Negative); Specific Gravity, Urine 1.014 (1.005-1.030)
[2025-02-26 08:04] LABS: Add Urine Microscopic? YES
[2025-02-26 08:14] LABS: Respiratory Syncytial Virus Ce NEGATIVE (Negative); SARS-CoV-2 PCR NEGATIVE (Negative)
== END 2025-02-26 09:25 | disposition home or self-care (01) ==
PROVIDERS: Emergency Provider Emergency Medicine; PCP Family Medicine
DX: R19.7 Diarrhea, unspecified (principal); Z11.52 Encounter for screening for COVID-19
CPT/HCPCS: 36415; 80053; 81001; 85025; 87637; 96361; 96374; 99284; J2405; J7120; J9999

== ENCOUNTER 2025-03-06 07:43 | Day surgery (SDC) | payer OTHER, SELFPAY ==
[2025-03-06] VITALS (11 sets, daily range): BP systolic 116–141; BP diastolic 52–85; PULSE 56–66; RESP 12–18; TEMP 36.2–36.4; O2SAT 95–100; BMI 36.9
--- NOTE | 2025-03-06 08:57 | ANES.PREANE2 ---
Pre-Anesthetic Assessment Height/Weight: Height 5 ft 9 in Weight 250 lb Temp Pulse Resp BP Pulse Ox O2 Del Method 97.5 F L 62 18 130/85 97 Room Air 03/06/25 08:05 03/06/25 08:05 03/06/25 08:05 03/06/25 08:05 03/06/25 08:05 03/06/25 08:07 Preop Diagnosis: Lumbar stenosis neurogenic claudication Operation Date: 03/06/25 09:20 Proposed Procedures p Lumbar Spine Decompression Lumbar Decompression(Not Applicable) - Harish Jackson, DO Was Beta Nathan taken within 24 hours: Yes Was Clonidine taken within 24 hours: N/A Last intake: Intake Last Liquid Date 03/05/25 Last Liquid Time 22:00 Last Solid Date 03/05/25 Last Solid Time 12:00 Social No alcohol and No tobacco Exam alert, oriented x 3, clear to auscultation bilaterally and regular rate & rhythm Airway Submandibular: within normal limits Cervical ROM: within normal limits Mallampati: Class III Dentition: full Anesthetic Plan ASA status: 3 Anesthesia: General Other: No prior issues with anesthesia NPO since yesterday evening History of prediabetes Denies any pulmonary issues Liver cirrhosis was on lactulose but this has improved Patient has not started her Wegovy yet Labs reviewed from 02/26/2025 acceptable for procedure Plan for GETA Medications/Allergies Home Medications ?Medication ?Instructions ?Recorded ?Confirmed ?Last Taken ?Type albuterol 90 mcg/actuation aerosol See Rx Instructions .Route 10/01/24 03/05/25 03/05/25 History inhaler .COMPLEX PRN Wheezing ondansetron 4 mg disintegrating 4 mg PO Q8H PRN nausea and 10/04/24 03/06/25 Unknown Rx tablet vomiting #10 tabs furosemide 20 mg tablet (Lasix) 40 mg PO PRN PRN Shortness Of 12/11/24 03/05/25 03/05/25 History Breath hydrocodone 5 mg-acetaminophen 325 1 tab PO BID PRN Pain 01/13/25 03/05/25 03/05/25 History mg tablet spironolactone 100 mg tablet 100 mg PO DAILY #90 tabs 01/13/25 03/05/25 03/06/25 Rx Left Knee Medial Sanitation Supervisor Brace #1 ea 01/28/25 03/05/25 Unknown Rx estradiol 1 mg tablet 2 mg PO DAILY 02/03/25 03/05/25 03/05/25 History empagliflozin 10 mg tablet 10 mg PO DAILY #90 tabs 02/06/25 03/05/25 03/05/25 Rx (Jardiance) ondansetron 4 mg disintegrating 4 mg PO Q6H PRN nausea and 02/26/25 03/06/25 Unknown Rx tablet vomiting #14 tabs propranolol 20 mg tablet 20 mg PO 2XD 03/04/25 03/05/25 03/06/25 History semaglutide (weight loss) 0.25 0.25 mg (0.5 mL) SUBCUT Q7D #4 pens 03/05/25 03/06/25 Unknown Rx mg/0.5 mL subcutaneous pen injector (Wegovy) semaglutide (weight loss) 0.5 0.5 mg (0.5 mL) SUBCUT Q7D #2 mL 03/05/25 03/06/25 Unknown Rx mg/0.5 mL subcutaneous pen injector (Wegovy) Allergies Allergy/AdvReac Type Severity Reaction Status Date / Time bee venom protein (honey bee) Allergy ALGY-Anaphy Verified 03/06/25 08:01 laxis cephalexin (From Keflex) Allergy Unknown Verified 03/06/25 08:01 Penicillins Allergy Unknown Verified 03/06/25 08:01 Current Medications Generic Name Dose Route Start Last Admin Trade Name Freq PRN Reason Stop Dose Admin Sodium Chloride 1,000 mls @ 30 mls/hr 03/06/25 08:00 03/06/25 08:13 Sodium Chloride 0.9% IV 03/07/25 07:59 30 mls/hr .Q24H BHANU Administration PFSH Anesthesia Medical History (Updated 03/06/25 @ 00:00 by ALFREDITO Jovel) Cirrhosis of liver Spinal stenosis, cervical region Family History Mother Cancer lung cancer Father Heart disease Brother Diabetes Sister Hypertension Other Heart problem Denies family history of Anesthesia complication Bleeding disorder Social History Smoking and tobacco/nicotine status: never used tobacco/nicotine Alcohol intake: never Substance/Drug Use: never Lives independently: Yes Data Anesthesia Cardiac Studies: Echocardiogram 10/02/24
--- NOTE | 2025-03-06 09:20 | W.PM.OPSFHP ---
Same Day Surgery H&P Indication for Procedure/HPI DATE OF PROCEDURE: March 06, 2025 CHIEF COMPLAINT/INDICATIONFOR SURGICAL PROCEDURE: Back and right leg pain PREOP DIAGNOSIS: Lumbar stenosis neurogenic claudication PLANNED PROCEDURE: Operation Date: 03/06/25 09:20 Proposed Procedures p Lumbar Spine Decompression Lumbar Decompression(Not Applicable) - Harish Jackson, DO Medications/Allergies* Home Medications ?Medication ?Instructions ?Recorded ?Confirmed ?Type albuterol 90 mcg/actuation aerosol See Rx Instructions .Route 10/01/24 03/05/25 History inhaler .COMPLEX PRN Wheezing furosemide 20 mg tablet (Lasix) 40 mg PO PRN PRN Shortness Of 12/11/24 03/05/25 History Breath hydrocodone 5 mg-acetaminophen 325 1 tab PO BID PRN Pain 01/13/25 03/05/25 History mg tablet estradiol 1 mg tablet 2 mg PO DAILY 02/03/25 03/05/25 History propranolol 20 mg tablet 20 mg PO 2XD 03/04/25 03/05/25 History Allergies/Adverse Reactions Allergy/AdvReac Type Severity Reaction Status Date / Time bee venom protein (honey bee) Allergy ALGY-Anaphy Verified 03/06/25 08:01 laxis cephalexin (From Keflex) Allergy Unknown Verified 03/06/25 08:01 Penicillins Allergy Unknown Verified 03/06/25 08:01 Current Medications: Generic Name Dose Route Start Last Admin Trade Name Freq PRN Reason Stop Dose Admin Sodium Chloride 1,000 mls @ 30 mls/hr 03/06/25 08:00 03/06/25 08:13 Sodium Chloride 0.9% IV 03/07/25 07:59 30 mls/hr .Q24H BHANU Administration Pertinent History/Comorbid Conditions* Medical History (Updated 03/06/25 @ 00:00 by ALFREDITO Jovel) Cirrhosis of liver Spinal stenosis, cervical region Family History (Updated 02/19/24 @ 15:46 by Lorenza Ugalde CMA) Diabetes Brother Heart disease Father Heart problem Cancer Mother lung cancer Hypertension Sister Denies family history of Anesthesia complication Bleeding disorder Social History Smoking and tobacco/nicotine status: never used tobacco/nicotine Alcohol intake: never Substance/Drug Use: never Lives independently: Yes Pertinent Exam Findings alert, oriented x 3 and procedure specific exam findings Recommendations Risks and benefits of procedure reviewed Surgery/Procedure today Coding Level of Care Code Acute Code for Chelsie Villeda
[2025-03-06] MEDS: lidocaine-epi 1% PF 1:200,000 30 mL SDV INJECTION (10:02)
--- NOTE | 2025-03-06 10:45 | XR_ITS ---
WS: [id number] Lumbar spine, C-arm fluoroscopy views, 03/06/2025 Clinical Data: OR PICS Comparison: Lumbar spine, 01/01/2025 Findings: Dr. Jackson performed lumbar decompression. XR/XR lumbar spine 2-3V* [id number] Impression: Lumbar decompression.
[2025-03-06] MEDS: fentaNYL 50 mcg/mL INJ 2mL IVP (10:59)
--- NOTE | 2025-03-06 11:10 | PM.OP ---
Operative Report Date of procedure: March 06, 2025 Pre-op diagnosis: Lumbar stenosis neurogenic claudication Post-op diagnosis: same Procedure done: 1. L3/4 laminectomy partial facetectomy 2. L4/5 laminectomy partial facetectomy Surgeon: Harish Jackson DO Estimated blood loss (mL): 5 Procedure: 1. L3/4 laminectomy partial facetectomy 2. L4/5 laminectomy partial facetectomy Patient is brought to the operative suite. After undergoing anesthesia they are placed in the prone position. All areas of impingement are well padded. Patient is then prepped and draped in the normal sterile fashion. A skin incision is made over the L3/4 level. This is confirmed under c-arm guidance. A series of dilators are passed and the tubular retractor is docked on the L3 lamina. A bovie is used to clear the soft tissue off the lamina and the L 3/4 facet joint. A high speed jerry is then used to perform the laminectomy and take down the medial aspect of the L 3/4 facet joint. A kerrison rongeure was then used to take down the remaining lamina and smooth the edge of the laminectomy up to the point where the ligamentum flavum attaches. Attention was then brought to the medial aspect of the facet joint. The remaining medial aspect of the superior and inferior aspect of the facet joint were taken down with the kerrison from the pedicle of L3 to L 4. The facet joint had significant hypertrophy. Attention was then brought to the Ligamentum Flavum. The ligament was taken down from the lamina of L3 to L4 and out medially to the remaining facet joint. The ligament was thick. The dura was then exposed. The dura was in good repair. The L 3 nerve was then traced with a curette out the L 3/4 foramen and found to be adequately decompressed. The L 4 nerve was traced with a curette around the L 4 pedicle. The lateral recess was opened with a kerrison helping to further decompress the L4 nerve. Wound is then irrigated copiously with saline and surgiflo is used to stop any bleeding. The tubular retractor is removed A skin incision is made over the L4/5 level. This is confirmed under c-arm guidance. A series of dilators are passed and the tubular retractor is docked on the L4 lamina. A bovie is used to clear the soft tissue off the lamina and the L 4/5 facet joint. A high speed jerry is then used to perform the laminectomy and take down the medial aspect of the L 4/5 facet joint. A kerrison rongeure was then used to take down the remaining lamina and smooth the edge of the laminectomy up to the point where the ligamentum flavum attaches. Attention was then brought to the medial aspect of the facet joint. The remaining medial aspect of the superior and inferior aspect of the facet joint were taken down with the kerrison from the pedicle of L4 to L 5. The facet joint had significant hypertrophy. Attention was then brought to the Ligamentum Flavum. The ligament was taken down from the lamina of L4 to L5 and out medially to the remaining facet joint. The ligament was thick. The dura was then exposed. The dura was in good repair. The L4 nerve was then traced with a curette out the L4/5 foramen and found to be adequately decompressed. The L5 nerve was traced with a curette around the L5 pedicle. The lateral recess was opened with a kerrison helping to further decompress the L5 nerve. Wound is then irrigated copiously with saline and surgiflo is used to stop any bleeding. The tubular retractor is removed and the wound is closed with vicryl and monocryl suture. Steri strips were applied. A sterile dressing is then placed. Patient was then placed in the supine position and transferred to the PACU in stable condition.
[2025-03-06] MEDS: HYDROcodone-acetaminophen 5-325 mg Tablet 1 TAB PO (11:34)
--- NOTE | 2025-03-06 12:05 | ANE.PACU2 ---
Inpatient post-anesthesia follow up: Airway intact: Yes Vital signs: Temperature 97.4 F Pulse Rate 58 Respiratory Rate 18 Blood Pressure 134/74 Pulse Oximetry 98 Oxygen Delivery Me thod Room Air Oxygen Flow Rate 6 Fraction of Inspir ed Oxygen Hydration adequate: Yes Nausea and vomiting: No Pain level: 1 Mental status: Baseline
== END 2025-03-06 12:05 | disposition home or self-care (01) ==
PROVIDERS: PCP Family Medicine; Visit Provider Orthopaedic Surgery
PROC: (CPT 63005; principal; 2025-03-06 09:20)
DX: M48.062 Spinal stenosis, lumbar region with neurogenic claudication (principal); Z79.891 Long term (current) use of opiate analgesic; K74.60 Unspecified cirrhosis of liver; R73.03 Prediabetes
CPT/HCPCS: 63047; 63048; 72100; 76000; A4649; J1100; J1885; J2250; J2405; J2704; J3010; J3490; J7030; J9999

== ENCOUNTER 2025-03-13 07:36 | Outpatient (CLI) | payer OTHER, SELFPAY ==
--- NOTE | 2025-03-13 08:15 | US_ITS ---
WS: [id number] RIGHT UPPER QUADRANT ULTRASOUND HISTORY: [facility], cholecystectomy. COMPARISON: 02/18/2018 Liver: 14.2 cm in length. Liver is normal size. Poorly visualized liver due to body habitus. Coarse echotexture. The deep liver is not very well penetrated. No mass or intrahepatic duct dilatation. Portal Vein: Normal hepatopetal flow with monophasic waveform. Gallbladder: Prior cholecystectomy. CBD: 0.4 cm Pancreas: Poorly visualized. Right kidney: 8.0 cm in length. Mild atrophy RIGHT kidney with no obstruction. No obstruction. Aorta and IVC: Limited. No ascites. US/US liver [id number] IMPRESSION: 1. Limited evaluation of the liver secondary to body habitus. 2. Prior cholecystectomy. 3. Normal size liver with moderate hepatic steatosis. Entire liver is not well imaged and visualized due to body habitus. 4. Mild atrophy RIGHT kidney. Kidney has decreased in size since 2018.
== END 2025-03-13 07:37 | disposition home or self-care (01) ==
LOC: RAD 07:37
PROVIDERS: PCP Family Medicine; Visit Provider Family Medicine
DX: K74.60 Unspecified cirrhosis of liver (principal); Z90.49 Acquired absence of other specified parts of digestive tract; N26.1 Atrophy of kidney (terminal)
CPT/HCPCS: 76705